=== PATIENT | female | born 1955 | race African-American/Black ===

== ENCOUNTER 2018-05-21 19:57 | Inpatient (IN) | payer OTHER ==
[2018-05-21 20:37] VITALS: BMI 33.1
--- NOTE | 2018-05-22 01:13 | HP ---
COWS - Scale Resting Pulse: 1= NM 81-100 Sweatin= Chills/Flushing Restless Observation: 5= Unable to Sit Still Pupil Size: 0= Normal to Room Light Bone or Joint Aches: 4=Acute Joint/Muscle Pain Runny Nose/ Eye Tearin= Runny Nose/Eyes GI Upset > 30mins: 2= Nausea/Diarrhea Tremor Observation: 1= Tremor [place], Not Seen Yawning Observation: 1= 1-2x During Session Anxiety or Irritability: 2=Irritable/Anxious Goose Flesh Skin: 0=Smooth Skin COWS Score: 19 CIWA Score - CIWA Score Nausea/Vomitin Muscle Tremors: 4-Moderate,w/Arms Extend Anxiety: 4-Mod. Anxious/Guarded Agitation: 4-Moderately Restless Paroxysmal Sweats: 3 Orientation: 0-Oriented Tacttile Disturbances: 3-Moderate Itch/Numb/Burn Auditory Disturbances: 0-None Visual Disturbances: 2-Mild Sensitivity Headache: 0-None Present CIWA-Ar Total Score: 23 Admission [facility] - HPI Chief Complaint: C/O WITHDRAWAL SX'S. SEEKING DETOX FOR ALCOHOL AND OPIOIDS Allergies/Adverse Reactions: Allergies Allergy/AdvReac Type Severity Reaction Status Date / Time No Known Allergies Allergy Verified 05/22/18 01:27 History of Present Illness: 63 Y.O. FEMAL WITH ALCOHOLISM AND OPIOID DEPENDENCE HERE FOR DETOX. CLIENT IS KNOWN TO THIS PROGRAM. LAST HERE 2010. DENIES ANY DETOX TXMENT SINCE THEN. SELF REFERRED. REPORTS LONGEST CLEAN TIME 16 YEARS. RELAPSING 14 YEARS AGO. C/O WITHDRAWAL SX'S DENIES SEIZURE D/O, C.P., SOB, AVH, BLACK OUTS. REPORTS PAST HX /O SUICIDAL ATTEMPT. PRESENLTY DENIES SUCH THOUGHTS. PMHX: HTN, GERD, PSYCH: DEPRESSION Exam Limitations: No Limitations - Ebola screening Have you traveled outside of the country in the last 21 days: No Have you had contact with anyone from an Ebola affected area: No Have you been sick,other than usual withdrawal symptoms: No Do you have a fever: No - Review of Systems Constitutional: Chills, Loss of Appetite, Malaise, Night Sweats, Changes in sleep EENT: reports: Dental Problems (partial upper and lower dentures) Respiratory: reports: Shortness of Breath Cardiac: reports: No Symptoms Reported GI: reports: Poor Appetite, Poor Fluid Intake : reports: No Symptoms Reported Musculoskeletal: reports: Back Pain (chronic), Joint Pain Integumentary: reports: Rash (eczema) Neuro: reports: No Symptoms reported Endocrine: reports: No Symptoms Reported Hematology: reports: No Symptoms Reported Psychiatric: reports: Depressed Other Systems: Reviewed and Negative Patient History - Patient Medical History Hx Anemia: No Hx Asthma: No Hx Chronic Obstructive Pulmonary Disease (COPD): No Hx Cancer: No Hx Cardiac Disorders: No Hx Congestive Heart Failure: No Hx Hypertension: Yes Hx Hypercholesterolemia: No Hx Pacemaker: No HX Cerebrovascular Accident: No Hx Seizures: No Hx Dementia: No Hx Diabetes: No Hx Gastrointestinal Disorders: Yes (gerd) Hx Liver Disease: No Hx Genitourinary Disorders: No Hx Sexually Transmitted Disorders: No Hx Renal Disease (ESRD): No Hx Thyroid Disease: No Hx Human Immunodeficiency Virus (HIV): No Hx Hepatitis C: No Hx Depression: Yes Hx Suicide Attempt: Yes (last attempt 20 years ago/ jumping off A ROOF) Hx Bipolar Disorder: No Hx Schizophrenia: No Other Medical History: denies - Patient Surgical History Past Surgical History: Yes Hx Orthopedic Surgery: Yes (LEFT FOOT BUNION) Anesthesia Reaction: No - PPD History Previous Implant?: Yes Documented Results: Negative w/o proof Implanted On Prior [facility] Admission?: No PPD to be Administered?: Yes - Reproductive History Patient is a Female of Child Bearing Age (11 -55 yrs old): No Patient : No (NEG [facility] [place]) - Smoking Cessation Smoking history: Current every day smoker Have you smoked in the past 12 months: Yes Aproximately how many cigarettes per day: 10 Cigars Per Day: 0 Hx Chewing Tobacco Use: No Initiated information on smoking cessation: Yes 'Breaking Loose' booklet given: 05/22/18 - Substance & Tx. History Hx Alcohol Use: Yes Hx Substance Use: Yes Substance Use Type: Alcohol, Heroin, Opiates (PERCOCETS) Hx Substance Use Treatment: Yes ([facility]) - Substances Abused HEROIN Route: Inhalation Frequency: 1-2 times per week Amount used: 3 BAGS Age of first use: 17 Date of Last Use: 05/20/18 BEER Route: Oral Frequency: Daily Amount used: 6-16OZ Age of first use: 17 Date of Last Use: 05/21/18 PERCOCETS Route: Oral Frequency: 3-6 times per week Amount used: 30MG Age of first use: 20 Date of Last Use: 05/20/18 Family Disease History - Family Disease History Family History: Unable to Obtain ("I DONT KNOW ANYTHING ABOUT THEM") Family Disease History: Other: Mother (ALCOHOLISM) Admission Physical Exam S - Vital Signs Vital Signs: Vital Signs - 24 hr 05/21/18 20:16 Temperature 98.3 F Pulse Rate 96 H Respiratory 18 Rate Blood Pressure 139/103 - Physical General Appearance: Yes: Appropriately Dressed, Mild Distress, Tremorous, Irritable, Anxious HEENTM: Yes: EOMI, Normal ENT Inspection, Normocephalic, Normal Voice, LINDSAY, Pharynx Normal, Other (DENTURES UPPER AND LOWER) Respiratory: Yes: Chest Non-Tender, Lungs Clear, Normal Breath Sounds, No Respiratory Distress, No Accessory Muscle Use Neck: Yes: No masses,lesions,Nodules, Supple, Trachea in good position Breast: Yes: Breast Exam Deferred Cardiology: Yes: Regular Rhythm, Regular Rate, S1, S2 Abdominal: Yes: Normal Bowel Sounds, Non Tender, Soft, Protuberent Genitourinary: Yes: Other (NO C/O) Back: Yes: Normal Inspection Musculoskeletal: Yes: full range of Motion, Gait Steady Extremities: Yes: Normal Capillary Refill, Normal Range of Motion, Non-Tender, Tremors Neurological: Yes: molding engineer II-XII NML intact, Fully Oriented, Alert, Motor Strength 5/5, Depressed Affect Integumentary: Yes: Dry, Warm Lymphatic: Yes: Within Normal Limits - Diagnostic (1) Alcohol dependence with uncomplicated withdrawal Current Visit: Yes Status: Acute (2) Opioid dependence with withdrawal Current Visit: Yes Status: Acute (3) Nicotine dependence Current Visit: Yes Status: Chronic Qualifiers: Nicotine product type: cigarettes Substance use status: uncomplicated Qualified Code(s): F17.210 - Nicotine dependence, cigarettes, uncomplicated (4) HTN (hypertension) Current Visit: Yes Status: Acute Qualifiers: Hypertension type: essential hypertension Qualified Code(s): I10 - Essential (primary) hypertension (5) GERD (gastroesophageal reflux disease) Current Visit: Yes Status: Chronic Qualifiers: Esophagitis presence: esophagitis presence not specified Qualified Code(s) : K21.9 - Gastro-esophageal reflux disease without esophagitis (6) At risk for dehydration due to poor fluid intake Current Visit: Yes Status: Acute (7) Depressed affect Current Visit: Yes Status: Suspected (8) Substance induced mood disorder Current Visit: Yes Status: Suspected (9) Substance-induced sleep disorder Current Visit: Yes Status: Suspected Cleared for Admission [facility] - Detox or Rehab [facility] Level of Care: Medically Managed Detox Regimen/Protocol: Methadone/Librium Claeared for Rehab Admission: No S Breath Alcohol Content Breath Alcohol Content: 0.035 Urine Pregancy Test - Result Urine Test Results: Negative- NO Line Present Urine Drug Screen - Results Drug Screen Negative: No Urine Drug Screen Results: OPI-Opiates, TCA-Tricyclic Antidepress, OXY-Oxycodone
[2018-05-22] MEDS ORDERED: P-EPHED 60MG/TRIPROLIDI 2.5MG TABLET PO PRN (01:16)
[2018-05-22] MEDS ORDERED: ACETAMINOPHEN 325 MG TABLET (FP) PO PRN (01:16)
[2018-05-22] MEDS ORDERED: METHADONE HCL 10 MG TABLET (FOR DETOX USE ONLY) PO ONE ×3 (01:16→22:00)
[2018-05-22] MEDS ORDERED: IBUPROFEN 400 MG TABLET (FP) PO PRN (01:16)
[2018-05-22] MEDS ORDERED: NICOTINE POLACRILEX 2 MG GUM BUC PRN (01:16)
[2018-05-22] MEDS ORDERED: MAG HYDROX/AL HYDROX/SIMETH 30 ML UNIT-DOSE CUP PO PRN (01:16)
[2018-05-22] MEDS ORDERED: chlordiazePOXIDE HCL 25 MG CAPSULE PO PRN (01:16)
[2018-05-22] MEDS ORDERED: LOPERAMIDE HCL 2 MG CAPSULE PO PRN (01:16)
[2018-05-22] MEDS ORDERED: MAGNESIUM CITRATE 300 ML BOTTLE PO PRN (01:16)
[2018-05-22] MEDS ORDERED: guaiFENesin/D-METHORPHAN HB 10 ML UNIT-DOSE CUPS PO PRN (01:16)
[2018-05-22] MEDS: chlordiazePOXIDE HCL 25 MG CAPSULE PO SCH ×4 (04:10→22:42)
--- NOTE | 2018-05-22 08:41 | CONSULT ---
[facility] Psychiatric Consult - Data Date of interview: 05/22/18 Admission source: [facility] Identifying data: This is 63 years old female, single mother of two, living alone, on SSI with psychiatric hospitalization history, history of suicidal attempt, with long history of Opioids, Alcohol and Nicotine dependence, reporting withdrawal symptoms and seeking detox. Substance Abuse History: Smoking history: Current every day smoker. Have you smoked in the past 12 months: Yes. Aproximately how many cigarettes per day: 10. Cigars Per Day: 0. Hx Chewing Tobacco Use: No. Initiated information on smoking cessation: Yes. 'Breaking Loose' booklet given: 05/22/18. - Substance & Tx. History. Hx Alcohol Use: Yes. Hx Substance Use: Yes. Substance Use Type : Alcohol, Heroin, Opiates (PERCOCETS). Hx Substance Use Treatment: Yes ([facility]) . - Substances Abused. HEROIN. Route: Inhalation. Frequency: 1-2 times per week. Amount used: 3 BAGS. Age of first use: 17. Date of Last Use: . BEER. Route: Oral. Frequency: Daily. Amount used: 6-16OZ. Age of first use: 17. Date of Last Use: 05/21/18. PERCOCETS. Route: Oral. Frequency: 3-6 times per week. Amount used: 30MG. Age of first use: 20. Date of Last Use: 05/20/18 Medical History: HTN, GERD Psychiatric History: Patient reports past psychiatric history of depression, suicidal attempt on about 20 years ago, patient tryed to jump of the roof, reports no suicidal history since then, reports most recent psychiatric admission on about 5 years ago for safety, reports currently taking: Paxil 40mg po qhs. Vicvtaril 50mg po qhs. Gabapentin 600mg po qhs Physical/Sexual Abuse/Trauma History: Denies Additional Comment: Paxil 40mg po qhs. Vicvtaril 50mg po qhs. Gabapentin 600mg po qhs Mental Status Exam - Mental Status Exam Alert and Oriented to: Person Cognitive Function: Fair Patient Appearance: Unkempt Mood: Anxious Affect: Mood Congruent, Constricted Patient Behavior: Cooperative Speech Pattern: Appropriate Voice Loudness: Mildly Soft/Quiet Thought Process: Goal Oriented Thought Disorder: Being Controlled Hallucinations: Denies Suicidal Ideation: Denies Homicidal Ideation: Denies Insight/Judgement: Fair Sleep: Difficulty falling asleep Appetite: Weight loss Muscle strength/Tone: Normal Gait/Station: Normal Additional Comments: Paxil 40mg po qhs. Vicvtaril 50mg po qhs. Gabapentin 600mg po qhs Psychiatric Findings - Problem List ([place] 1, 2,3) (1) Alcohol dependence with uncomplicated withdrawal Current Visit: Yes Status: Acute (2) Substance induced mood disorder Current Visit: Yes Status: Suspected (3) Substance-induced sleep disorder Current Visit: Yes Status: Suspected (4) Opioid dependence Current Visit: Yes Status: Acute (5) Nicotine dependence Current Visit: Yes Status: Acute (6) Drug-induced mood disorder Current Visit: Yes Status: Acute (7) MDD (major depressive disorder) Current Visit: Yes Status: Chronic - Initial Treatment Plan Initial Treatment Plan: Paxil 40mg po qhs. Vicvtaril 50mg po qhs. Gabapentin 600mg po qhs
[2018-05-22] MEDS ORDERED: COLLOIDAL OATMEAL 1 BAR EACH TP PRN (08:44)
--- NOTE | 2018-05-22 08:49 | PN ---
[facility] CIWA - CIWA Score Nausea/Vomitin-Mild Nausea/No Vomiting Muscle Tremors: 4-Moderate,w/Arms Extend Anxiety: 4-Mod. Anxious/Guarded Agitation: 4-Moderately Restless Paroxysmal Sweats: 1-Minimal Palms Moist Orientation: 1-Uncertain about Date Tacttile Disturbances: 2-Mild Itch/Numbness/Burn Auditory Disturbances: 0-None Visual Disturbances: 0-None Headache: 1-Very Mild CIWA-Ar Total Score: 18 [facility] COWS - Scale Resting Pulse: 1= [place] 81-100 Sweatin= Chills/Flushing Restless Observation: 3= Extraneous Movement Pupil Size: 0= Normal to Room Light Bone or Joint Aches: 2= Severe Diffuse Aches Runny Nose/ Eye Tearin= Nasal Congestion GI Upset > 30mins: 2= Nausea/Diarrhea Tremor Observation of Outstretched Hands: 2= Slight Tremor Visible Yawning Observation: 1= 1-2x During Session Anxiety or Irritability: 2=Irritable/Anxious Goose Flesh Skin: 0=Smooth Skin COWS Score: 15 [facility] Progress Note (SOAP) Subjective: sweat tremor muscle aches itching skin trouble sleep at night anxiety Objective: 05/22/18 08:51 Vital Signs Temperature 98.1 F 05/22/18 06:30 Pulse Rate 85 05/22/18 06:30 Respiratory Rate 18 05/22/18 06:30 Blood Pressure 155/98 05/22/18 06:30 O2 Sat by Pulse Oximetry (%) lab pending begin clonidine 0.1 mg prn lasix 20 mg po daily Assessment: 05/22/18 08:52 alcohol and opiate withdrawal sx hypertension CHF with swelling ankles Eczema 05/22/18 08:54 Plan: continue detox aveen soap eucerine cream clonidine prn and lasix elevation of both legs
[2018-05-22] MEDS: cloNIDine HCL 0.1 MG TABLET PO PRN (10:18)
[2018-05-22] MEDS: PRENATAL VITAMINS W/ FOLIC ACID TABLET (FP) PO SCH (10:19)
[2018-05-22] MEDS: FUROSEMIDE 20 MG TABLET (FP) PO SCH (10:19)
[2018-05-22] MEDS: NICOTINE 14 MG/24 HOURS TOPICAL PATCH TD SCH (10:21)
[2018-05-22 10:49] LABS: CHLORIDE 101 mmol/L (98-107); POTASSIUM 3.8 mmol/L (3.5-5.1); SODIUM 137 mmol/L (136-145)
[2018-05-22 10:55] LABS: HEMATOCRIT 39.5 % (32.4-45.2); HEMOGLOBIN 13.5 GM/dL (10.7-15.3); MEAN PLT VOLUME 11.5 fl (7.5-11.1); PLATELET COUNT 145 K/MM3 (134-434); RBC 4.21 M/mm3 (3.60-5.2); RDW 13.9 % (11.6-15.6); WHITE BLOOD COUNT 8.6 K/mm3 (4.0-10.0)
[2018-05-22 11:05] LABS: URINE APPEARANCE CLOUDY; URINE BILIRUBIN NEGATIVE (<2.0 mg/dL); URINE COLOR DKYELLOW; URINE GLUCOSE (UA) NEGATIVE (NEGATIVE); URINE KETONE NEGATIVE (NEGATIVE); URINE LEUK ESTERASE TRACE (NEGATIVE); URINE NITRITE NEGATIVE (NEGATIVE); URINE PROTEIN NEGATIVE (NEGATIVE); URINE UROBILINOGEN 4.0 E.U/dl mg/dL (0.2-1.0)
[2018-05-22 11:12] LABS: ALBUMIN 4.3 g/dl (3.4-5.0); ALK PHOS 73 U/L (45-117); ANION GAP 8 MMOL/L (8-16); BILIRUBIN,TOTAL 0.6 mg/dL (0.2-1.0); BLOOD UREA NITROGEN 23 mg/dL (7-18); CALCIUM 8.8 mg/dL (8.5-10.1); CO2 28 mmol/L (21-32); CREATININE 0.9 mg/dL (0.55-1.02); GLUCOSE,RANDOM 118 mg/dL (74-106); SGOT/AST 20 U/L (15-37); SGPT/ALT 18 U/L (12-78); TOT PROT 7.7 g/dl (6.4-8.2)
[2018-05-22 11:57] LABS: CALCIUM OXALATE CRYSTALS RARE /hpf (NONE SEEN); EPI CELLS MODERATE /HPF (FEW); URINE BACTERIA FEW /hpf (NONE SEEN); URINE HYALINE CAST 2 /lpf; URINE MUCUS RARE; YEAST RARE
--- NOTE | 2018-05-22 12:30 | EKG ---
Test Reason : Blood Pressure : / mmHG Vent. Rate : 076 BPM Atrial Rate : 076 BPM P-R Int : 180 ms QRS Dur : 088 ms QT Int : 394 ms P-R-T Axes : 072 057 -09 degrees QTc Int : 443 ms NORMAL SINUS RHYTHM VOLTAGE CRITERIA FOR LEFT VENTRICULAR HYPERTROPHY T WAVE ABNORMALITY, CONSIDER LATERAL ISCHEMIA ABNORMAL ECG NO PREVIOUS ECGS AVAILABLE Confirmed by NIKKO DUBON MD ([id number]) on 05/22/2018 12:30:30 PM Referred By: Confirmed By:NIKKO DUBON MD
--- NOTE | 2018-05-22 12:32 | EKG ---
Test Reason : Blood Pressure : / mmHG Vent. Rate : 078 BPM Atrial Rate : 078 BPM P-R Int : 192 ms QRS Dur : 092 ms QT Int : 370 ms P-R-T Axes : 072 059 -17 degrees QTc Int : 421 ms NORMAL SINUS RHYTHM MODERATE VOLTAGE CRITERIA FOR LVH, MAY BE NORMAL VARIANT T WAVE ABNORMALITY, CONSIDER INFEROLATERAL ISCHEMIA ABNORMAL ECG WHEN COMPARED WITH ECG OF 22-MAY-2018 02:52, NO SIGNIFICANT CHANGE WAS FOUND Confirmed by NIKKO DUBON MD ([id number]) on 05/22/2018 12:31:55 PM Referred By: Confirmed By:NIKKO DUBON MD
[2018-05-22] MEDS ORDERED: hydrOXYzine PAMOATE 50 MG CAPSULE (FP) PO ONE (14:36)
[2018-05-22] MEDS: CALAMINE 8% TOPICAL LOTION 177 ML BOTTLE TP SCH ×2 (21:18→23:16)
[2018-05-22] MEDS ORDERED: MELATONIN 5 MG TABLETS PO PRN (22:00)
[2018-05-22] MEDS: PARoxetine HCL 20 MG TABLET (FP) PO SCH (22:41)
[2018-05-22] MEDS: THIAMINE HCL 100 MG TABLET (FP) PO SCH (22:41)
[2018-05-22] MEDS: hydrOXYzine PAMOATE 50 MG CAPSULE (FP) PO SCH (22:42)
[2018-05-22] MEDS: GABAPENTIN 300 MG CAPSULE (FP) PO SCH (22:42)
[2018-05-22] MEDS: MINERAL OIL/PETROLAT/WATER TOPICAL CREAM 113 GM JAR TP SCH (23:16)
[2018-05-23] MEDS: chlordiazePOXIDE HCL 25 MG CAPSULE PO SCH ×3 (06:32→22:38)
[2018-05-23] MEDS: cloNIDine HCL 0.1 MG TABLET PO PRN ×2 (06:33→22:39)
[2018-05-23] MEDS ORDERED: cloNIDine HCL 0.1 MG TABLET PO ONE (08:10)
[2018-05-23] MEDS ORDERED: METHADONE HCL 5 MG TABLET (FOR DETOX USE ONLY) PO SCH (10:00)
[2018-05-23] MEDS: FUROSEMIDE 20 MG TABLET (FP) PO SCH (10:58)
[2018-05-23] MEDS: PRENATAL VITAMINS W/ FOLIC ACID TABLET (FP) PO SCH (10:58)
[2018-05-23] MEDS: NICOTINE 14 MG/24 HOURS TOPICAL PATCH TD SCH (11:02)
[2018-05-23] MEDS: CALAMINE 8% TOPICAL LOTION 177 ML BOTTLE TP SCH ×3 (11:02→22:39)
[2018-05-23] MEDS: MAGNESIUM HYDROX 2400MG/30ML ORAL SUSPENSION 30 ML CUP PO PRN ×2 (15:02→22:39)
[2018-05-23] MEDS: hydrOXYzine PAMOATE 50 MG CAPSULE (FP) PO SCH (22:38)
[2018-05-23] MEDS: THIAMINE HCL 100 MG TABLET (FP) PO SCH (22:38)
[2018-05-23] MEDS: PARoxetine HCL 20 MG TABLET (FP) PO SCH (22:39)
[2018-05-23] MEDS: GABAPENTIN 300 MG CAPSULE (FP) PO SCH (22:40)
[2018-05-23] MEDS: MINERAL OIL/PETROLAT/WATER TOPICAL CREAM 113 GM JAR TP SCH (22:40)
--- NOTE | 2018-05-23 23:18 | PN ---
[facility] CIWA - CIWA Score Nausea/Vomitin-Mild Nausea/No Vomiting Muscle Tremors: 4-Moderate,w/Arms Extend Anxiety: 1-Mildly Anxious Agitation: 1-Slight > Activity Paroxysmal Sweats: No Perspiration Orientation: 0-Oriented Tacttile Disturbances: 0-None Auditory Disturbances: 0-None Visual Disturbances: 0-None Headache: 0-None Present CIWA-Ar Total Score: 7 S COWS - Scale Resting Pulse: 1= [place] 81-100 Sweatin= No chills or Flushing Restless Observation: 0= Sits Still Pupil Size: 0= Normal to Room Light Bone or Joint Aches: 0= None Runny Nose/ Eye Tearin= None GI Upset > 30mins: 2= Nausea/Diarrhea (No diarrhea) Tremor Observation of Outstretched Hands: 2= Slight Tremor Visible Yawning Observation: 0= None Anxiety or Irritability: 1=Feels Anxious/Irritable Goose Flesh Skin: 0=Smooth Skin COWS Score: 6 S Progress Note (SOAP) Subjective: Feels anxious and having some nausea. Shaky. Objective: A & O x 3. (+) Tremors. Vital Signs - 24 hr 05/23/18 05/23/18 05/23/18 00:05 00:30 03:30 Temperature 97.7 F Pulse Rate 70 Respiratory 18 18 18 Rate Blood Pressure 173/95 05/23/18 05/23/18 05/23/18 08:43 08:59 14:05 Temperature 97.5 F L 98.4 F 98.1 F Pulse Rate 71 84 85 Respiratory 18 16 16 Rate Blood Pressure 162/119 145/98 119/90 05/23/18 05/23/18 17:44 22:44 Temperature 96.6 F L 98.1 F Pulse Rate 77 93 H Respiratory 16 18 Rate Blood Pressure 155/88 145/110 Laboratory Last Values WBC 8.6 K/mm3 (4.0-10.0) 05/22/18 07:30 RBC 4.21 M/mm3 (3.60-5.2) 05/22/18 07:30 Hgb 13.5 GM/dL (10.7-15.3) 05/22/18 07:30 Hct 39.5 % (32.4-45.2) 05/22/18 07:30 MCV 94.0 fl (80-96) 05/22/18 07:30 MCH 32.0 pg (25.7-33.7) 05/22/18 07:30 MCHC 34.0 g/dl (32.0-36.0) 05/22/18 07:30 RDW 13.9 % (11.6-15.6) 05/22/18 07:30 Plt Count 145 K/MM3 (134-434) 05/22/18 07:30 MPV 11.5 fl (7.5-11.1) H 05/22/18 07:30 Sodium 137 mmol/L (136-145) 05/22/18 07:30 Potassium 3.8 mmol/L (3.5-5.1) 05/22/18 07:30 Chloride 101 mmol/L (98-107) 05/22/18 07:30 Carbon Dioxide 28 mmol/L (21-32) 05/22/18 07:30 Anion Gap 8 MMOL/L (8-16) 05/22/18 07:30 BUN 23 mg/dL (7-18) H 05/22/18 07:30 Creatinine 0.9 mg/dL (0.55-1.02) 05/22/18 07:30 Creat Clearance w eGFR > 60 (>60) 05/22/18 07:30 Random Glucose 118 mg/dL (74-106) H 05/22/18 07:30 Calcium 8.8 mg/dL (8.5-10.1) 05/22/18 07:30 Total Bilirubin 0.6 mg/dL (0.2-1.0) 05/22/18 07:30 AST 20 U/L (15-37) 05/22/18 07:30 ALT 18 U/L (12-78) 05/22/18 07:30 Alkaline Phosphatase 73 U/L (45-117) 05/22/18 07:30 Total Protein 7.7 g/dl (6.4-8.2) 05/22/18 07:30 Albumin 4.3 g/dl (3.4-5.0) 05/22/18 07:30 Urine Color Dkyellow 05/22/18 09:05 Urine Appearance Cloudy 05/22/18 09:05 Urine pH 5.0 (5.0-8.0) 05/22/18 09:05 Ur Specific [place] 1.028 (1.001-1.035) 05/22/18 09:05 Urine Protein Negative (NEGATIVE) 05/22/18 09:05 Urine Glucose (UA) Negative (NEGATIVE) 05/22/18 09:05 Urine Ketones Negative (NEGATIVE) 05/22/18 09:05 Urine Blood Negative (NEGATIVE) 05/22/18 09:05 Urine Nitrite Negative (NEGATIVE) 05/22/18 09:05 Urine Bilirubin Negative (<2.0 mg/dL) 05/22/18 09:05 Urine Urobilinogen 4.0 e.u/dl mg/dL (0.2-1.0) H 05/22/18 09:05 Ur Leukocyte Esterase Trace (NEGATIVE) 05/22/18 09:05 Urine WBC (Auto) 5 /hpf (3-5) 05/22/18 09:05 Urine RBC (Auto) 2 /hpf (0-3) 05/22/18 09:05 Ur Epithelial Cells Moderate /HPF (FEW) 05/22/18 09:05 Calcium Oxalate Crystal Rare /hpf (NONE SEEN) 05/22/18 09:05 Urine Bacteria Few /hpf (NONE SEEN) 05/22/18 09:05 Hyaline Casts 2 /lpf 05/22/18 09:05 Urine Mucus Rare 05/22/18 09:05 Urine Yeast Rare 05/22/18 09:05 RPR Titer Nonreactive (NONREACTIVE) 05/22/18 09:00 Labs reviewed Assessment: Alcohol and opiate withdrawal Plan: Continue detox
[2018-05-24] MEDS: CALAMINE 8% TOPICAL LOTION 177 ML BOTTLE TP SCH ×5 (00:15→22:15)
[2018-05-24] MEDS: chlordiazePOXIDE HCL 25 MG CAPSULE PO SCH (00:16)
[2018-05-24] MEDS: chlordiazePOXIDE 5 MG CAPSULE PO SCH ×4 (06:58→22:13)
[2018-05-24] MEDS: FUROSEMIDE 20 MG TABLET (FP) PO SCH (10:39)
[2018-05-24] MEDS: METHADONE HCL 5 MG TABLET (FOR DETOX USE ONLY) PO SCH (10:39)
[2018-05-24] MEDS: PRENATAL VITAMINS W/ FOLIC ACID TABLET (FP) PO SCH (10:39)
[2018-05-24] MEDS: NICOTINE 14 MG/24 HOURS TOPICAL PATCH TD SCH (10:41)
--- NOTE | 2018-05-24 18:38 | PN ---
S Progress Note (SOAP) Subjective: Patient states I am fine. Stop asking me. Objective: Alert and oriented x 3 but movements are slow. Gait steady. Agitated. Vital Signs 05/24/18 05/24/18 13:44 17:31 Temperature 98.1 F 97.3 F L Pulse Rate 95 H 81 Respiratory 20 18 Rate Blood Pressure 147/99 145/86 Laboratory Last Values WBC 8.6 K/mm3 (4.0-10.0) 05/22/18 07:30 RBC 4.21 M/mm3 (3.60-5.2) 05/22/18 07:30 Hgb 13.5 GM/dL (10.7-15.3) 05/22/18 07:30 Hct 39.5 % (32.4-45.2) 05/22/18 07:30 MCV 94.0 fl (80-96) 05/22/18 07:30 MCH 32.0 pg (25.7-33.7) 05/22/18 07:30 MCHC 34.0 g/dl (32.0-36.0) 05/22/18 07:30 RDW 13.9 % (11.6-15.6) 05/22/18 07:30 Plt Count 145 K/MM3 (134-434) 05/22/18 07:30 MPV 11.5 fl (7.5-11.1) H 05/22/18 07:30 Sodium 137 mmol/L (136-145) 05/22/18 07:30 Potassium 3.8 mmol/L (3.5-5.1) 05/22/18 07:30 Chloride 101 mmol/L (98-107) 05/22/18 07:30 Carbon Dioxide 28 mmol/L (21-32) 05/22/18 07:30 Anion Gap 8 MMOL/L (8-16) 05/22/18 07:30 BUN 23 mg/dL (7-18) H 05/22/18 07:30 Creatinine 0.9 mg/dL (0.55-1.02) 05/22/18 07:30 Creat Clearance w eGFR > 60 (>60) 05/22/18 07:30 Random Glucose 118 mg/dL (74-106) H 05/22/18 07:30 Calcium 8.8 mg/dL (8.5-10.1) 05/22/18 07:30 Total Bilirubin 0.6 mg/dL (0.2-1.0) 05/22/18 07:30 AST 20 U/L (15-37) 05/22/18 07:30 ALT 18 U/L (12-78) 05/22/18 07:30 Alkaline Phosphatase 73 U/L (45-117) 05/22/18 07:30 Total Protein 7.7 g/dl (6.4-8.2) 05/22/18 07:30 Albumin 4.3 g/dl (3.4-5.0) 05/22/18 07:30 Urine Color Dkyellow 05/22/18 09:05 Urine Appearance Cloudy 05/22/18 09:05 Urine pH 5.0 (5.0-8.0) 05/22/18 09:05 Ur Specific [place] 1.028 (1.001-1.035) 05/22/18 09:05 Urine Protein Negative (NEGATIVE) 05/22/18 09:05 Urine Glucose (UA) Negative (NEGATIVE) 05/22/18 09:05 Urine Ketones Negative (NEGATIVE) 05/22/18 09:05 Urine Blood Negative (NEGATIVE) 05/22/18 09:05 Urine Nitrite Negative (NEGATIVE) 05/22/18 09:05 Urine Bilirubin Negative (<2.0 mg/dL) 05/22/18 09:05 Urine Urobilinogen 4.0 e.u/dl mg/dL (0.2-1.0) H 05/22/18 09:05 Ur Leukocyte Esterase Trace (NEGATIVE) 05/22/18 09:05 Urine WBC (Auto) 5 /hpf (3-5) 05/22/18 09:05 Urine RBC (Auto) 2 /hpf (0-3) 05/22/18 09:05 Ur Epithelial Cells Moderate /HPF (FEW) 05/22/18 09:05 Calcium Oxalate Crystal Rare /hpf (NONE SEEN) 05/22/18 09:05 Urine Bacteria Few /hpf (NONE SEEN) 05/22/18 09:05 Hyaline Casts 2 /lpf 05/22/18 09:05 Urine Mucus Rare 05/22/18 09:05 Urine Yeast Rare 05/22/18 09:05 RPR Titer Nonreactive (NONREACTIVE) 05/22/18 09:00 Labs reviewed. Assessment: Withdrawal symptoms. r/o elevated serum ammonia level. Plan: Continue detox. Serum ammonia level in am.
[2018-05-24] MEDS: THIAMINE HCL 100 MG TABLET (FP) PO SCH (22:13)
[2018-05-24] MEDS: hydrOXYzine PAMOATE 50 MG CAPSULE (FP) PO SCH (22:14)
[2018-05-24] MEDS: PARoxetine HCL 20 MG TABLET (FP) PO SCH (22:14)
[2018-05-24] MEDS: GABAPENTIN 300 MG CAPSULE (FP) PO SCH (22:14)
[2018-05-24] MEDS: MINERAL OIL/PETROLAT/WATER TOPICAL CREAM 113 GM JAR TP SCH (22:48)
[2018-05-25] MEDS: chlordiazePOXIDE HCL 10 MG CAPSULE PO SCH ×5 (05:41→22:33)
[2018-05-25] MEDS: cloNIDine HCL 0.1 MG TABLET PO PRN ×2 (05:43→11:20)
--- NOTE | 2018-05-25 10:08 | PN ---
[facility] Progress Note Note: Vital Signs Temperature 98.6 F 05/25/18 09:55 Pulse Rate 89 05/25/18 09:55 Respiratory Rate 20 05/25/18 09:55 Blood Pressure 150/105 05/25/18 09:55 O2 Sat by Pulse Oximetry (%) Laboratory Last Values WBC 8.6 K/mm3 (4.0-10.0) 05/22/18 07:30 RBC 4.21 M/mm3 (3.60-5.2) 05/22/18 07:30 Hgb 13.5 GM/dL (10.7-15.3) 05/22/18 07:30 Hct 39.5 % (32.4-45.2) 05/22/18 07:30 MCV 94.0 fl (80-96) 05/22/18 07:30 MCH 32.0 pg (25.7-33.7) 05/22/18 07:30 MCHC 34.0 g/dl (32.0-36.0) 05/22/18 07:30 RDW 13.9 % (11.6-15.6) 05/22/18 07:30 Plt Count 145 K/MM3 (134-434) 05/22/18 07:30 MPV 11.5 fl (7.5-11.1) H 05/22/18 07:30 Sodium 137 mmol/L (136-145) 05/22/18 07:30 Potassium 3.8 mmol/L (3.5-5.1) 05/22/18 07:30 Chloride 101 mmol/L (98-107) 05/22/18 07:30 Carbon Dioxide 28 mmol/L (21-32) 05/22/18 07:30 Anion Gap 8 MMOL/L (8-16) 05/22/18 07:30 BUN 23 mg/dL (7-18) H 05/22/18 07:30 Creatinine 0.9 mg/dL (0.55-1.02) 05/22/18 07:30 Creat Clearance w eGFR > 60 (>60) 05/22/18 07:30 Random Glucose 118 mg/dL (74-106) H 05/22/18 07:30 Calcium 8.8 mg/dL (8.5-10.1) 05/22/18 07:30 Total Bilirubin 0.6 mg/dL (0.2-1.0) 05/22/18 07:30 AST 20 U/L (15-37) 05/22/18 07:30 ALT 18 U/L (12-78) 05/22/18 07:30 Alkaline Phosphatase 73 U/L (45-117) 05/22/18 07:30 Total Protein 7.7 g/dl (6.4-8.2) 05/22/18 07:30 Albumin 4.3 g/dl (3.4-5.0) 05/22/18 07:30 Urine Color Dkyellow 05/22/18 09:05 Urine Appearance Cloudy 05/22/18 09:05 Urine pH 5.0 (5.0-8.0) 05/22/18 09:05 Ur Specific [place] 1.028 (1.001-1.035) 05/22/18 09:05 Urine Protein Negative (NEGATIVE) 05/22/18 09:05 Urine Glucose (UA) Negative (NEGATIVE) 05/22/18 09:05 Urine Ketones Negative (NEGATIVE) 05/22/18 09:05 Urine Blood Negative (NEGATIVE) 05/22/18 09:05 Urine Nitrite Negative (NEGATIVE) 05/22/18 09:05 Urine Bilirubin Negative (<2.0 mg/dL) 05/22/18 09:05 Urine Urobilinogen 4.0 e.u/dl mg/dL (0.2-1.0) H 05/22/18 09:05 Ur Leukocyte Esterase Trace (NEGATIVE) 05/22/18 09:05 Urine WBC (Auto) 5 /hpf (3-5) 05/22/18 09:05 Urine RBC (Auto) 2 /hpf (0-3) 05/22/18 09:05 Ur Epithelial Cells Moderate /HPF (FEW) 05/22/18 09:05 Calcium Oxalate Crystal Rare /hpf (NONE SEEN) 05/22/18 09:05 Urine Bacteria Few /hpf (NONE SEEN) 05/22/18 09:05 Hyaline Casts 2 /lpf 05/22/18 09:05 Urine Mucus Rare 05/22/18 09:05 Urine Yeast Rare 05/22/18 09:05 RPR Titer Nonreactive (NONREACTIVE) 05/22/18 09:00 Patient AOx3 no distress mild lethargy present full ROM ambulating in the unit withdrawal sx elevated ammonia levels Plan: increase PO fluids hold next dose of librium lactulose TID repeat ammonia levels continue detox continue to montior
[2018-05-25] MEDS: NICOTINE 14 MG/24 HOURS TOPICAL PATCH TD SCH (10:33)
[2018-05-25] MEDS: FUROSEMIDE 20 MG TABLET (FP) PO SCH (10:35)
[2018-05-25] MEDS: PRENATAL VITAMINS W/ FOLIC ACID TABLET (FP) PO SCH (10:35)
[2018-05-25] MEDS: CALAMINE 8% TOPICAL LOTION 177 ML BOTTLE TP SCH ×4 (10:36→23:44)
[2018-05-25] MEDS: METHADONE HCL 5 MG TABLET (FOR DETOX USE ONLY) PO SCH (15:30)
[2018-05-25] MEDS: LACTULOSE 20 GM/30 ML UDC (FOR ORAL USE ONLY) PO SCH (22:32)
[2018-05-25] MEDS: GABAPENTIN 300 MG CAPSULE (FP) PO SCH (22:33)
[2018-05-25] MEDS: THIAMINE HCL 100 MG TABLET (FP) PO SCH (22:34)
[2018-05-25] MEDS: PARoxetine HCL 20 MG TABLET (FP) PO SCH (22:34)
[2018-05-25] MEDS: hydrOXYzine PAMOATE 50 MG CAPSULE (FP) PO SCH (22:34)
[2018-05-25] MEDS: MINERAL OIL/PETROLAT/WATER TOPICAL CREAM 113 GM JAR TP SCH (23:44)
[2018-05-26] MEDS: LACTULOSE 20 GM/30 ML UDC (FOR ORAL USE ONLY) PO SCH ×3 (05:43→22:27)
[2018-05-26] MEDS: cloNIDine HCL 0.1 MG TABLET PO PRN (05:43)
[2018-05-26] MEDS: MENTHOL/PHENOL 1 EACH UD MM PRN (05:46)
[2018-05-26] MEDS ORDERED: METHADONE HCL 10 MG TABLET (FOR DETOX USE ONLY) PO SCH (10:00)
[2018-05-26] MEDS: FUROSEMIDE 20 MG TABLET (FP) PO SCH (10:33)
[2018-05-26] MEDS: PRENATAL VITAMINS W/ FOLIC ACID TABLET (FP) PO SCH (10:33)
[2018-05-26] MEDS: NICOTINE 14 MG/24 HOURS TOPICAL PATCH TD SCH (10:35)
[2018-05-26] MEDS: CALAMINE 8% TOPICAL LOTION 177 ML BOTTLE TP SCH ×2 (10:36→13:59)
--- NOTE | 2018-05-26 13:55 | PN ---
S Progress Note (SOAP) Subjective: patient has mild alcohol withdrawal sx today ammonia level up to 71, patient had two doses of lactulose since ammonia level was 52 patient is going to be discharged to [facility] continue lactulose and monitor ammonia level while at [facility] Objective: 05/26/18 14:05 Vital Signs Temperature 98.2 F 05/26/18 09:40 Pulse Rate 93 H 05/26/18 09:40 Respiratory Rate 18 05/26/18 09:40 Blood Pressure 130/83 05/26/18 09:40 O2 Sat by Pulse Oximetry (%) Laboratory Last Values WBC 8.6 K/mm3 (4.0-10.0) 05/22/18 07:30 RBC 4.21 M/mm3 (3.60-5.2) 05/22/18 07:30 Hgb 13.5 GM/dL (10.7-15.3) 05/22/18 07:30 Hct 39.5 % (32.4-45.2) 05/22/18 07:30 MCV 94.0 fl (80-96) 05/22/18 07:30 MCH 32.0 pg (25.7-33.7) 05/22/18 07:30 MCHC 34.0 g/dl (32.0-36.0) 05/22/18 07:30 RDW 13.9 % (11.6-15.6) 05/22/18 07:30 Plt Count 145 K/MM3 (134-434) 05/22/18 07:30 MPV 11.5 fl (7.5-11.1) H 05/22/18 07:30 Sodium 137 mmol/L (136-145) 05/22/18 07:30 Potassium 3.8 mmol/L (3.5-5.1) 05/22/18 07:30 Chloride 101 mmol/L (98-107) 05/22/18 07:30 Carbon Dioxide 28 mmol/L (21-32) 05/22/18 07:30 Anion Gap 8 MMOL/L (8-16) 05/22/18 07:30 BUN 23 mg/dL (7-18) H 05/22/18 07:30 Creatinine 0.9 mg/dL (0.55-1.02) 05/22/18 07:30 Creat Clearance w eGFR > 60 (>60) 05/22/18 07:30 Random Glucose 118 mg/dL (74-106) H 05/22/18 07:30 Calcium 8.8 mg/dL (8.5-10.1) 05/22/18 07:30 Total Bilirubin 0.6 mg/dL (0.2-1.0) 05/22/18 07:30 AST 20 U/L (15-37) 05/22/18 07:30 ALT 18 U/L (12-78) 05/22/18 07:30 Alkaline Phosphatase 73 U/L (45-117) 05/22/18 07:30 Ammonia 71.31 umol/L (11-32) H 05/26/18 08:00 Total Protein 7.7 g/dl (6.4-8.2) 05/22/18 07:30 Albumin 4.3 g/dl (3.4-5.0) 05/22/18 07:30 Urine Color Dkyellow 05/22/18 09:05 Urine Appearance Cloudy 05/22/18 09:05 Urine pH 5.0 (5.0-8.0) 05/22/18 09:05 Ur Specific [place] 1.028 (1.001-1.035) 05/22/18 09:05 Urine Protein Negative (NEGATIVE) 05/22/18 09:05 Urine Glucose (UA) Negative (NEGATIVE) 05/22/18 09:05 Urine Ketones Negative (NEGATIVE) 05/22/18 09:05 Urine Blood Negative (NEGATIVE) 05/22/18 09:05 Urine Nitrite Negative (NEGATIVE) 05/22/18 09:05 Urine Bilirubin Negative (<2.0 mg/dL) 05/22/18 09:05 Urine Urobilinogen 4.0 e.u/dl mg/dL (0.2-1.0) H 05/22/18 09:05 Ur Leukocyte Esterase Trace (NEGATIVE) 05/22/18 09:05 Urine WBC (Auto) 5 /hpf (3-5) 05/22/18 09:05 Urine RBC (Auto) 2 /hpf (0-3) 05/22/18 09:05 Ur Epithelial Cells Moderate /HPF (FEW) 05/22/18 09:05 Calcium Oxalate Crystal Rare /hpf (NONE SEEN) 05/22/18 09:05 Urine Bacteria Few /hpf (NONE SEEN) 05/22/18 09:05 Hyaline Casts 2 /lpf 05/22/18 09:05 Urine Mucus Rare 05/22/18 09:05 Urine Yeast Rare 05/22/18 09:05 RPR Titer Nonreactive (NONREACTIVE) 05/22/18 09:00 lab noted Assessment: 05/26/18 14:06 mild withdrawal sx Plan: medically supervised detox ammonia serum level elevation treated with lactulose
[2018-05-26] MEDS: GABAPENTIN 300 MG CAPSULE (FP) PO SCH (22:27)
[2018-05-26] MEDS: PARoxetine HCL 20 MG TABLET (FP) PO SCH (22:28)
[2018-05-26] MEDS: THIAMINE HCL 100 MG TABLET (FP) PO SCH (22:29)
[2018-05-26] MEDS: hydrOXYzine PAMOATE 50 MG CAPSULE (FP) PO SCH (22:29)
[2018-05-27] MEDS: CALAMINE 8% TOPICAL LOTION 177 ML BOTTLE TP SCH ×6 (00:06→23:06)
[2018-05-27] MEDS: MINERAL OIL/PETROLAT/WATER TOPICAL CREAM 113 GM JAR TP SCH ×2 (00:07→23:06)
[2018-05-27] MEDS ORDERED: METHADONE HCL 10 MG TABLET (FOR DETOX USE ONLY) PO SCH (06:00)
[2018-05-27] MEDS: LACTULOSE 20 GM/30 ML UDC (FOR ORAL USE ONLY) PO SCH ×3 (06:29→22:17)
[2018-05-27] MEDS ORDERED: METHADONE HCL 5 MG TABLET PO SCH (06:30)
--- NOTE | 2018-05-27 09:04 | DS ---
[facility] Detox Discharge Summary Admission Date: 05/22/18 Discharge Date: 05/27/18 - Physical Exam Results Vital Signs: Vital Signs Temperature 97.7 F 05/27/18 07:07 Pulse Rate 78 05/27/18 07:07 Respiratory Rate 05/27/18 07:07 Blood Pressure 154/88 05/27/18 07:07 O2 Sat by Pulse Oximetry (%) - Medication Discharge Medications: Ambulatory Orders Gabapentin [Neurontin -] 600 mg PO HS #30 capsule 05/22/18 Paroxetine HCl [Paxil -] 40 mg PO HS #30 tablet 05/22/18 hydrOXYzine PAMOATE [Vistaril -] 50 mg PO HS #30 capsule 05/22/18 Furosemide [Lasix -] 20 mg PO DAILY #30 tablet 05/26/18 Lactulose (Oral Use) [Cephulac -] 20 gm PO TID #120 udc 05/26/18
[2018-05-27] MEDS: PRENATAL VITAMINS W/ FOLIC ACID TABLET (FP) PO SCH (10:23)
[2018-05-27] MEDS: NICOTINE 14 MG/24 HOURS TOPICAL PATCH TD SCH (10:23)
[2018-05-27] MEDS: FUROSEMIDE 20 MG TABLET (FP) PO SCH (10:23)
--- NOTE | 2018-05-27 15:54 | PN ---
S Progress Note (SOAP) Subjective: 63 years old female admitted on 05/22/18 for opiate withdrawal sx completed opiate detox regimen tolerated well denies opiate withdrawal sx Objective: 05/27/18 15:53 Vital Signs Temperature 98.2 F 05/27/18 14:01 Pulse Rate 92 H 05/27/18 14:01 Respiratory Rate 18 05/27/18 14:01 Blood Pressure 135/83 05/27/18 14:01 O2 Sat by Pulse Oximetry (%) Laboratory Last Values WBC 8.6 K/mm3 (4.0-10.0) 05/22/18 07:30 RBC 4.21 M/mm3 (3.60-5.2) 05/22/18 07:30 Hgb 13.5 GM/dL (10.7-15.3) 05/22/18 07:30 Hct 39.5 % (32.4-45.2) 05/22/18 07:30 MCV 94.0 fl (80-96) 05/22/18 07:30 MCH 32.0 pg (25.7-33.7) 05/22/18 07:30 MCHC 34.0 g/dl (32.0-36.0) 05/22/18 07:30 RDW 13.9 % (11.6-15.6) 05/22/18 07:30 Plt Count 145 K/MM3 (134-434) 05/22/18 07:30 MPV 11.5 fl (7.5-11.1) H 05/22/18 07:30 Sodium 137 mmol/L (136-145) 05/22/18 07:30 Potassium 3.8 mmol/L (3.5-5.1) 05/22/18 07:30 Chloride 101 mmol/L (98-107) 05/22/18 07:30 Carbon Dioxide 28 mmol/L (21-32) 05/22/18 07:30 Anion Gap 8 MMOL/L (8-16) 05/22/18 07:30 BUN 23 mg/dL (7-18) H 05/22/18 07:30 Creatinine 0.9 mg/dL (0.55-1.02) 05/22/18 07:30 Creat Clearance w eGFR > 60 (>60) 05/22/18 07:30 Random Glucose 118 mg/dL (74-106) H 05/22/18 07:30 Calcium 8.8 mg/dL (8.5-10.1) 05/22/18 07:30 Total Bilirubin 0.6 mg/dL (0.2-1.0) 05/22/18 07:30 AST 20 U/L (15-37) 05/22/18 07:30 ALT 18 U/L (12-78) 05/22/18 07:30 Alkaline Phosphatase 73 U/L (45-117) 05/22/18 07:30 Ammonia 71.31 umol/L (11-32) H 05/26/18 08:00 Total Protein 7.7 g/dl (6.4-8.2) 05/22/18 07:30 Albumin 4.3 g/dl (3.4-5.0) 05/22/18 07:30 Urine Color Dkyellow 05/22/18 09:05 Urine Appearance Cloudy 05/22/18 09:05 Urine pH 5.0 (5.0-8.0) 05/22/18 09:05 Ur Specific [place] 1.028 (1.001-1.035) 05/22/18 09:05 Urine Protein Negative (NEGATIVE) 05/22/18 09:05 Urine Glucose (UA) Negative (NEGATIVE) 05/22/18 09:05 Urine Ketones Negative (NEGATIVE) 05/22/18 09:05 Urine Blood Negative (NEGATIVE) 05/22/18 09:05 Urine Nitrite Negative (NEGATIVE) 05/22/18 09:05 Urine Bilirubin Negative (<2.0 mg/dL) 05/22/18 09:05 Urine Urobilinogen 4.0 e.u/dl mg/dL (0.2-1.0) H 05/22/18 09:05 Ur Leukocyte Esterase Trace (NEGATIVE) 05/22/18 09:05 Urine WBC (Auto) 5 /hpf (3-5) 05/22/18 09:05 Urine RBC (Auto) 2 /hpf (0-3) 05/22/18 09:05 Ur Epithelial Cells Moderate /HPF (FEW) 05/22/18 09:05 Calcium Oxalate Crystal Rare /hpf (NONE SEEN) 05/22/18 09:05 Urine Bacteria Few /hpf (NONE SEEN) 05/22/18 09:05 Hyaline Casts 2 /lpf 05/22/18 09:05 Urine Mucus Rare 05/22/18 09:05 Urine Yeast Rare 05/22/18 09:05 RPR Titer Nonreactive (NONREACTIVE) 05/22/18 09:00 lab noted ammonia elevation Assessment: 05/27/18 15:54 continue ammonia level monitoring Plan: continue lactulose repeat ammonia level 05/28/18
[2018-05-27] MEDS: cloNIDine HCL 0.1 MG TABLET PO PRN (18:20)
[2018-05-27] MEDS: THIAMINE HCL 100 MG TABLET (FP) PO SCH (22:18)
[2018-05-27] MEDS: hydrOXYzine PAMOATE 50 MG CAPSULE (FP) PO SCH (22:18)
[2018-05-27] MEDS: GABAPENTIN 300 MG CAPSULE (FP) PO SCH (22:18)
[2018-05-27] MEDS: PARoxetine HCL 20 MG TABLET (FP) PO SCH (22:18)
[2018-05-28] MEDS: LACTULOSE 20 GM/30 ML UDC (FOR ORAL USE ONLY) PO SCH ×2 (06:49→22:28)
[2018-05-28] MEDS: cloNIDine HCL 0.1 MG TABLET PO PRN (07:49)
--- NOTE | 2018-05-28 08:30 | DS ---
[facility] Detox Discharge Summary Admission Date: 05/22/18 Discharge Date: 05/28/18 - History Present History: Opioid Dependence Additional Comments: 63years old female admitted on 05/22/18 for opiate withdrawal sx completed opiate detox regimen tolerated well denies opiate withdrawal sx alert oriented x 3 no acute distress after[facility] - Physical Exam Results Vital Signs: Vital Signs Temperature 97 F L 05/28/18 06:24 Pulse Rate 86 05/28/18 06:24 Respiratory Rate 18 05/28/18 06:24 Blood Pressure 160/91 05/28/18 06:24 O2 Sat by Pulse Oximetry (%) Pertinent Admission Physical Exam Findings: opiate withdrawal sx Vital Signs Temperature 98.1 F 05/28/18 09:32 Pulse Rate 92 H 05/28/18 09:32 Respiratory Rate 18 05/28/18 09:32 Blood Pressure 145/82 05/28/18 09:32 O2 Sat by Pulse Oximetry (%) Laboratory Last Values WBC 8.6 K/mm3 (4.0-10.0) 05/22/18 07:30 RBC 4.21 M/mm3 (3.60-5.2) 05/22/18 07:30 Hgb 13.5 GM/dL (10.7-15.3) 05/22/18 07:30 Hct 39.5 % (32.4-45.2) 05/22/18 07:30 MCV 94.0 fl (80-96) 05/22/18 07:30 MCH 32.0 pg (25.7-33.7) 05/22/18 07:30 MCHC 34.0 g/dl (32.0-36.0) 05/22/18 07:30 RDW 13.9 % (11.6-15.6) 05/22/18 07:30 Plt Count 145 K/MM3 (134-434) 05/22/18 07:30 MPV 11.5 fl (7.5-11.1) H 05/22/18 07:30 Sodium 137 mmol/L (136-145) 05/22/18 07:30 Potassium 3.8 mmol/L (3.5-5.1) 05/22/18 07:30 Chloride 101 mmol/L (98-107) 05/22/18 07:30 Carbon Dioxide 28 mmol/L (21-32) 05/22/18 07:30 Anion Gap 8 MMOL/L (8-16) 05/22/18 07:30 BUN 23 mg/dL (7-18) H 05/22/18 07:30 Creatinine 0.9 mg/dL (0.55-1.02) 05/22/18 07:30 Creat Clearance w eGFR > 60 (>60) 05/22/18 07:30 Random Glucose 118 mg/dL (74-106) H 05/22/18 07:30 Calcium 8.8 mg/dL (8.5-10.1) 05/22/18 07:30 Total Bilirubin 0.6 mg/dL (0.2-1.0) 05/22/18 07:30 AST 20 U/L (15-37) 05/22/18 07:30 ALT 18 U/L (12-78) 05/22/18 07:30 Alkaline Phosphatase 73 U/L (45-117) 05/22/18 07:30 Ammonia 46.21 umol/L (11-32) H 05/28/18 07:00 Total Protein 7.7 g/dl (6.4-8.2) 05/22/18 07:30 Albumin 4.3 g/dl (3.4-5.0) 05/22/18 07:30 Urine Color Dkyellow 05/22/18 09:05 Urine Appearance Cloudy 05/22/18 09:05 Urine pH 5.0 (5.0-8.0) 05/22/18 09:05 Ur Specific [place] 1.028 (1.001-1.035) 05/22/18 09:05 Urine Protein Negative (NEGATIVE) 05/22/18 09:05 Urine Glucose (UA) Negative (NEGATIVE) 05/22/18 09:05 Urine Ketones Negative (NEGATIVE) 05/22/18 09:05 Urine Blood Negative (NEGATIVE) 05/22/18 09:05 Urine Nitrite Negative (NEGATIVE) 05/22/18 09:05 Urine Bilirubin Negative (<2.0 mg/dL) 05/22/18 09:05 Urine Urobilinogen 4.0 e.u/dl mg/dL (0.2-1.0) H 05/22/18 09:05 Ur Leukocyte Esterase Trace (NEGATIVE) 05/22/18 09:05 Urine WBC (Auto) 5 /hpf (3-5) 05/22/18 09:05 Urine RBC (Auto) 2 /hpf (0-3) 05/22/18 09:05 Ur Epithelial Cells Moderate /HPF (FEW) 05/22/18 09:05 Calcium Oxalate Crystal Rare /hpf (NONE SEEN) 05/22/18 09:05 Urine Bacteria Few /hpf (NONE SEEN) 05/22/18 09:05 Hyaline Casts 2 /lpf 05/22/18 09:05 Urine Mucus Rare 05/22/18 09:05 Urine Yeast Rare 05/22/18 09:05 RPR Titer Nonreactive (NONREACTIVE) 05/22/18 09:00 lab noted - Treatment Hospital Course: Detox Protocol Followed, Detoxed Safely, Responded well, Discharged Condition Good, Rehab Referral Accepted Patient has Accepted a Rehab Referral to: [facility] - Medication Discharge Medications: Ambulatory Orders Gabapentin [Neurontin -] 600 mg PO HS #30 capsule 05/22/18 Paroxetine HCl [Paxil -] 40 mg PO HS #30 tablet 05/22/18 hydrOXYzine PAMOATE [Vistaril -] 50 mg PO HS #30 capsule 05/22/18 Furosemide [Lasix -] 20 mg PO DAILY #30 tablet 05/26/18 Lactulose (Oral Use) [Cephulac -] 20 gm PO TID #120 udc 05/26/18 - Diagnosis (1) Liver enzyme elevation Current Visit: Yes Status: Acute (2) Alcohol dependence with uncomplicated withdrawal Current Visit: Yes Status: Acute (3) HTN (hypertension) Current Visit: Yes Status: Chronic Qualifiers: Hypertension type: essential hypertension Qualified Code(s): I10 - Essential (primary) hypertension (4) Nicotine dependence Current Visit: Yes Status: Acute Qualifiers: Nicotine product type: cigarettes Substance use status: in withdrawal Qualified Code(s): F17.213 - Nicotine dependence, cigarettes, with withdrawal (5) Opioid dependence with withdrawal Current Visit: Yes Status: Acute (6) GERD (gastroesophageal reflux disease) Current Visit: Yes Status: Chronic Qualifiers: Esophagitis presence: esophagitis presence not specified Qualified Code(s) : K21.9 - Gastro-esophageal reflux disease without esophagitis (7) Substance induced mood disorder Current Visit: Yes Status: Suspected - AMA Did Patient Leave Against Medical Advice: No
[2018-05-28] MEDS: CALAMINE 8% TOPICAL LOTION 177 ML BOTTLE TP SCH ×4 (11:24→22:29)
[2018-05-28] MEDS: PRENATAL VITAMINS W/ FOLIC ACID TABLET (FP) PO SCH (11:24)
[2018-05-28] MEDS: NICOTINE 14 MG/24 HOURS TOPICAL PATCH TD SCH (11:24)
[2018-05-28] MEDS: FUROSEMIDE 20 MG TABLET (FP) PO SCH (13:34)
--- NOTE | 2018-05-28 16:35 | PN ---
Psychiatric Progress Note Vital Signs: Vital Signs Period Temp Pulse Resp BP Sys/Johansen Pulse Ox Last 24 Hr 97 F-98.1 F 69-92 16-18 126-160/82-109 Date of Session: 05/28/18 Chief Complaint:: "I don't want to go home." HPI: Pt. with a history of opioids, alcohol and nicotine dependence. ROS: HTN, GERD Current Medications: Active Medications Generic Name Dose Route Start Last Admin Trade Name Freq PRN Reason Stop Dose Admin Al Hydroxide/Mg Hydroxide 30 ml 05/22/18 01:16 Mylanta Oral Suspension - PO Q6H PRN DYSPEPSIA Calamine 1 applic 05/22/18 18:00 05/28/18 13:46 Calamine 8% Topical Lotion - TP Not Given QID XAVIER Clonidine 0.2 mg 05/23/18 07:47 05/28/18 07:49 Catapres - PO 0.2 mg Q6H PRN Administration withdrawal sx's/htn Colloidal Oatmeal 1 applic 05/22/18 08:44 05/22/18 15:13 Aveeno Soap - TP 1 applic DAILY PRN Administration HYGEINE Eucalyptus/Menthol/Phenol/Sorbitol 1 each 05/22/18 01:16 05/26/18 05:46 Cepastat Lozenge - MM 1 each Q4H PRN Administration SORE THROAT Furosemide 20 mg 05/22/18 10:00 05/28/18 13:34 Lasix - PO Not Given DAILY XAVIER Gabapentin 600 mg 05/22/18 22:00 05/27/18 22:18 Neurontin - PO 600 mg HS XAVIER Administration Guaifenesin 10 ml 05/22/18 01:16 Robitussin Dm - PO Q6H PRN COUGH Hydroxyzine Pamoate 50 mg 05/22/18 22:00 05/27/18 22:18 Vistaril - PO 50 mg HS XAVIER Administration Ibuprofen 400 mg 05/22/18 01:16 05/24/18 07:01 Motrin - PO 400 mg Q6H PRN Administration PAIN LEVEL 4-6 Lactulose 20 gm 05/28/18 22:00 Cephulac (Oral Use) PO BID XAVIER Loperamide HCl 4 mg 05/22/18 01:16 Imodium - PO Q6H PRN DIARRHEA Magnesium Citrate 300 ml 05/22/18 01:16 Citroma - PO Q48H PRN CONSTIPATION Magnesium Hydroxide 30 ml 05/22/18 01:16 05/23/18 22:39 Milk Of Magnesia - PO 30 ml DAILY PRN Administration CONSTIPATION Multi-Ingredient Lotion 1 applic 05/22/18 22:00 05/27/18 23:06 Eucerin (Small Jar) - TP Not Given HS XAVIER Nicotine 14 mg 05/22/18 10:00 05/28/18 11:24 Nicoderm Patch - TD Not Given DAILY XAVIER Nicotine Polacrilex 2 mg 05/22/18 01:16 Nicorette Gum - BUC Q2H PRN NICOTINE REPLACEMENT RX Paroxetine HCl 40 mg 05/22/18 22:00 05/27/18 22:18 Paxil - PO 40 mg HS XAVIER Administration Multivit/Folic Acid/Iron 1 tab 05/22/18 10:00 05/28/18 11:24 Vitamins (Sjr) - PO Not Given DAILY XAVIER Pseudoephedrine/Triprolidine 1 combo 05/22/18 01:16 Actifed - PO TID PRN NASAL CONGESTION Thiamine HCl 100 mg 05/22/18 22:00 05/27/18 22:18 Vitamin B1 - PO 100 mg HS XAVIER Administration Medication(s) Change(s): No. Current Side Effect: No Lab tests ordered: No Lab tests reviewed: Yes Provider note:: [employer] Worker met with patient for psychatric follow up. Pt. presented as sad and tearful. Pt. upset about her discharge plan. States she needs rehab and is not happy about being discharged home. Pt. denies current thoughts to hurt herself but is worried if discharge she may begin to endorse suicidal ideation. Pt. requesting to continue treatment in rehab at [place]. Its recommended that patient remain on 6N until tomorrow due to risk of suicidality. She does not have family in [facility] and therefore spends the majority of her time alone. Pt. currently does not have any thoughts or urges to hurt self. Pt. is safe on the unit and does not require 1:1 observation. Patient is currently prescribed paxil 40mg daily + gabapentin 600mg qhs. Patient is compliant with current medication regime and is tolerating medications well. Will continue to monitor. Total face to face time:: 35 Mental Status Exam - Mental Status Exam Alert and Oriented to: Time, Place, Person Cognitive Function: Good Patient Appearance: Well Groomed Mood: Sad, Anxious Affect: Mood Congruent Patient Behavior: Crying, Cooperative Speech Pattern: Appropriate Voice Loudness: Normal Thought Process: Intact, Goal Oriented Thought Disorder: Not Present Hallucinations: Denies Suicidal Ideation: Denies Homicidal Ideation: Denies Insight/Judgement: Poor Sleep: Fair Appetite: Fair Muscle strength/Tone: Normal Gait/Station: Normal Psychiatric Treatment Plan - Problem List (1) Opioid dependence Current Visit: Yes (2) MDD (major depressive disorder) Current Visit: Yes (3) Nicotine dependence Current Visit: Yes Qualifiers: Nicotine product type: cigarettes Substance use status: uncomplicated Qualified Code(s): F17.210 - Nicotine dependence, cigarettes, uncomplicated (4) Substance induced mood disorder Current Visit: Yes (5) Alcohol dependence Current Visit: Yes
--- NOTE | 2018-05-28 17:01 | PN ---
S Progress Note Note: Vital Signs Temperature 97.5 F L 05/28/18 13:29 Pulse Rate 69 05/28/18 13:29 Respiratory Rate 18 05/28/18 13:29 Blood Pressure 126/82 05/28/18 13:29 O2 Sat by Pulse Oximetry (%) Patient scheduled for discharge today. Patient evaluated with psych which recommend patient to be discharge in AM d/t patient feeling sad, lack of risk for suicidality. Patient will be monitor overnight, if stable discharge in the morning.
[2018-05-28] MEDS: MENTHOL/PHENOL 1 EACH UD MM PRN (20:28)
[2018-05-28] MEDS: MINERAL OIL/PETROLAT/WATER TOPICAL CREAM 113 GM JAR TP SCH (22:27)
[2018-05-28] MEDS: PARoxetine HCL 20 MG TABLET (FP) PO SCH (22:27)
[2018-05-28] MEDS: hydrOXYzine PAMOATE 50 MG CAPSULE (FP) PO SCH (22:27)
[2018-05-28] MEDS: GABAPENTIN 300 MG CAPSULE (FP) PO SCH (22:27)
[2018-05-28] MEDS: THIAMINE HCL 100 MG TABLET (FP) PO SCH (22:27)
[2018-05-29 09:19] VITALS: PULSE 87; TEMP 98.8
[2018-05-29 09:20] VITALS: BP 150/85
--- NOTE | 2018-05-29 10:04 | DS ---
[facility] Detox Discharge Summary Admission Date: 05/22/18 Discharge Date: 05/29/18 - History Present History: Opioid Dependence Additional Comments: 63 years old female admitted on 05/22/18 for opiate withdrawal sx completed detox regimen evaluated by the psychiatrist scheduled to be discharged today case discussed with counselor that transportation from detox to [facility] inpatient rehab today patient agrees to go to [facility] via transportation patient is alert oriented x 3 no acute distress denies suicidal denies homocidal no self destructive behavior patient feels sad to leave the detox unit where the patient perceived good care from staff - Physical Exam Results Vital Signs: Vital Signs Temperature 98.8 F 05/29/18 09:19 Pulse Rate 87 05/29/18 09:19 Respiratory Rate 16 05/29/18 09:19 Blood Pressure 150/85 05/29/18 09:19 O2 Sat by Pulse Oximetry (%) Pertinent Admission Physical Exam Findings: opiate withdrawal sx Vital Signs Temperature 98.8 F 05/29/18 09:19 Pulse Rate 87 05/29/18 09:19 Respiratory Rate 16 05/29/18 09:19 Blood Pressure 150/85 05/29/18 09:19 O2 Sat by Pulse Oximetry (%) Laboratory Last Values WBC 8.6 K/mm3 (4.0-10.0) 05/22/18 07:30 RBC 4.21 M/mm3 (3.60-5.2) 05/22/18 07:30 Hgb 13.5 GM/dL (10.7-15.3) 05/22/18 07:30 Hct 39.5 % (32.4-45.2) 05/22/18 07:30 MCV 94.0 fl (80-96) 05/22/18 07:30 MCH 32.0 pg (25.7-33.7) 05/22/18 07:30 MCHC 34.0 g/dl (32.0-36.0) 05/22/18 07:30 RDW 13.9 % (11.6-15.6) 05/22/18 07:30 Plt Count 145 K/MM3 (134-434) 05/22/18 07:30 MPV 11.5 fl (7.5-11.1) H 05/22/18 07:30 Sodium 137 mmol/L (136-145) 05/22/18 07:30 Potassium 3.8 mmol/L (3.5-5.1) 05/22/18 07:30 Chloride 101 mmol/L (98-107) 05/22/18 07:30 Carbon Dioxide 28 mmol/L (21-32) 05/22/18 07:30 Anion Gap 8 MMOL/L (8-16) 05/22/18 07:30 BUN 23 mg/dL (7-18) H 05/22/18 07:30 Creatinine 0.9 mg/dL (0.55-1.02) 05/22/18 07:30 Creat Clearance w eGFR > 60 (>60) 05/22/18 07:30 Random Glucose 118 mg/dL (74-106) H 05/22/18 07:30 Calcium 8.8 mg/dL (8.5-10.1) 05/22/18 07:30 Total Bilirubin 0.6 mg/dL (0.2-1.0) 05/22/18 07:30 AST 20 U/L (15-37) 05/22/18 07:30 ALT 18 U/L (12-78) 05/22/18 07:30 Alkaline Phosphatase 73 U/L (45-117) 05/22/18 07:30 Ammonia 46.21 umol/L (11-32) H 05/28/18 07:00 Total Protein 7.7 g/dl (6.4-8.2) 05/22/18 07:30 Albumin 4.3 g/dl (3.4-5.0) 05/22/18 07:30 Urine Color Dkyellow 05/22/18 09:05 Urine Appearance Cloudy 05/22/18 09:05 Urine pH 5.0 (5.0-8.0) 05/22/18 09:05 Ur Specific [place] 1.028 (1.001-1.035) 05/22/18 09:05 Urine Protein Negative (NEGATIVE) 05/22/18 09:05 Urine Glucose (UA) Negative (NEGATIVE) 05/22/18 09:05 Urine Ketones Negative (NEGATIVE) 05/22/18 09:05 Urine Blood Negative (NEGATIVE) 05/22/18 09:05 Urine Nitrite Negative (NEGATIVE) 05/22/18 09:05 Urine Bilirubin Negative (<2.0 mg/dL) 05/22/18 09:05 Urine Urobilinogen 4.0 e.u/dl mg/dL (0.2-1.0) H 05/22/18 09:05 Ur Leukocyte Esterase Trace (NEGATIVE) 05/22/18 09:05 Urine WBC (Auto) 5 /hpf (3-5) 05/22/18 09:05 Urine RBC (Auto) 2 /hpf (0-3) 05/22/18 09:05 Ur Epithelial Cells Moderate /HPF (FEW) 05/22/18 09:05 Calcium Oxalate Crystal Rare /hpf (NONE SEEN) 05/22/18 09:05 Urine Bacteria Few /hpf (NONE SEEN) 05/22/18 09:05 Hyaline Casts 2 /lpf 05/22/18 09:05 Urine Mucus Rare 05/22/18 09:05 Urine Yeast Rare 05/22/18 09:05 RPR Titer Nonreactive (NONREACTIVE) 05/22/18 09:00 labnoted continue ammonia elevation treatment with lactulose with good effect - Treatment Hospital Course: Detox Protocol Followed, Detoxed Safely, Responded well, Discharged Condition Good, Rehab Referral Accepted Patient has Accepted a Rehab Referral to: [facility] / [facility] - Medication Discharge Medications: Ambulatory Orders Gabapentin [Neurontin -] 600 mg PO HS #30 capsule 05/22/18 Paroxetine HCl [Paxil -] 40 mg PO HS #30 tablet 05/22/18 hydrOXYzine PAMOATE [Vistaril -] 50 mg PO HS #30 capsule 05/22/18 Furosemide [Lasix -] 20 mg PO DAILY #30 tablet 05/26/18 Lactulose (Oral Use) [Cephulac -] 20 gm PO TID #120 udc 05/26/18 - Diagnosis (1) Liver enzyme elevation Current Visit: Yes Status: Acute (2) Alcohol dependence with uncomplicated withdrawal Current Visit: Yes Status: Acute (3) HTN (hypertension) Current Visit: Yes Status: Chronic Qualifiers: Hypertension type: essential hypertension Qualified Code(s): I10 - Essential (primary) hypertension (4) Nicotine dependence Current Visit: Yes Status: Acute Qualifiers: Nicotine product type: cigarettes Substance use status: in withdrawal Qualified Code(s): F17.213 - Nicotine dependence, cigarettes, with withdrawal (5) Opioid dependence with withdrawal Current Visit: Yes Status: Acute (6) GERD (gastroesophageal reflux disease) Current Visit: Yes Status: Chronic Qualifiers: Esophagitis presence: esophagitis presence not specified Qualified Code(s) : K21.9 - Gastro-esophageal reflux disease without esophagitis (7) Substance induced mood disorder Current Visit: Yes Status: Suspected - AMA Did Patient Leave Against Medical Advice: No
[2018-05-29] MEDS: LACTULOSE 20 GM/30 ML UDC (FOR ORAL USE ONLY) PO SCH (10:55)
[2018-05-29] MEDS: NICOTINE 14 MG/24 HOURS TOPICAL PATCH TD SCH (10:55)
[2018-05-29] MEDS: CALAMINE 8% TOPICAL LOTION 177 ML BOTTLE TP SCH ×2 (10:55→13:18)
[2018-05-29] MEDS: FUROSEMIDE 20 MG TABLET (FP) PO SCH (10:55)
[2018-05-29] MEDS: PRENATAL VITAMINS W/ FOLIC ACID TABLET (FP) PO SCH (10:55)
== END 2018-05-29 13:24 | disposition home or self-care (01) | DRG 897 ==
LOC: YASAS 19:57 → Y6N 05-22 01:54
PROC: HZ2ZZZZ Detoxification Services for Substance Abuse Treatment (ICD-10-PCS; principal; 2018-05-22)
DX: F11.23 Opioid dependence with withdrawal (principal); F19.282 Other psychoactive substance dependence with psychoactive substance-induced sleep disorder; F33.9 Major depressive disorder, recurrent, unspecified; E72.20 Disorder of urea cycle metabolism, unspecified; F10.230 Alcohol dependence with withdrawal, uncomplicated; F17.210 Nicotine dependence, cigarettes, uncomplicated; F19.24 Other psychoactive substance dependence with psychoactive substance-induced mood disorder; I10 Essential (primary) hypertension; K21.9 Gastro-esophageal reflux disease without esophagitis; R94.5 Abnormal results of liver function studies; R63.8 Other symptoms and signs concerning food and fluid intake; Z91.5 Personal history of self-harm
CPT/HCPCS: 36415; 80053; 81003; 81015; 82140; 85027; 86593; 93005; 93010; J0735

== ENCOUNTER 2018-09-04 12:14 | Inpatient (IN) | payer OTHER ==
[2018-09-04 13:17] VITALS: BMI 31.6
--- NOTE | 2018-09-04 14:17 | HP ---
COWS - Scale Resting Pulse: 1= [place] 81-100 Sweatin= Chills/Flushing Restless Observation: 1= Difficult to Sit Still Pupil Size: 1= Pupils >than Normal Bone or Joint Aches: 2= Severe Diffuse Aches Runny Nose/ Eye Tearin= Runny Nose/Eyes GI Upset > 30mins: 1= Stomach Cramp Tremor Observation: 2= Slight Tremor Visible Yawning Observation: 0= None Anxiety or Irritability: 2=Irritable/Anxious Goose Flesh Skin: 0=Smooth Skin COWS Score: 13 CIWA Score Nausea/Vomitin-Mild Nausea/No Vomiting Muscle Tremors: 2 Anxiety: 2 Agitation: 2 Paroxysmal Sweats: 2 Orientation: 2-Disoriented Date<2 days Tacttile Disturbances: 1-Very Mild Itch/Numbness Auditory Disturbances: 0-None Visual Disturbances: 2-Mild Sensitivity Headache: 1-Very Mild CIWA-Ar Total Score: 15 - Admission Criteria [facility] Guidelines: Admission for Medically Managed Detox: Requires at least one of the followin. CIWA greater than 12 2. Seizures within the past 24 hours 3. Delirium tremens within the past 24 hours 4. Hallucinations within the past 24 hours 5. Acute intervention needed for co occurring medical disorder 6. Acute intervention needed for co occurring psychiatric disorder 7. Severe withdrawal that cannot be handled at a lower level of care (continued vomiting, continued diarrhea, abnormal vital signs) requiring intravenous medication and/or fluids 8. Admission [facility] Chief Complaint: ETOH/HEROIN WITHDRAWAL. Allergies/Adverse Reactions: Allergies Allergy/AdvReac Type Severity Reaction Status Date / Time No Known Allergies Allergy Verified 09/04/18 13:24 History of Present Illness: PATIENT IS KNOWN TO [facility] AND THIS IS SECOND ADMISSION THIS YEAR, LAST 2017. PATIENT STARTED DRINKING AT AGE 17, DRINKS UP TO 7-16 OUNCE BEERS DAILY, LAST DRINK THIS MORNING. PATIENT ALSO SNIFFS 4 BAGS OF HEROIN DAILY X 3 YEARS, INTERMITTENTLY. LAST TIME SHE SNIFFED WAS LAST NIGHT. +BINGE DRINKER, FIRST DRINK UPON ARISING. PATIENT DENIES SEIZURES, FALLS AND BLACKOUTS. NO HISTORY OF OVERDOSE. PMH INCLUDES BIPOLAR DISORDER AND HTN. DENIES SUICIDE ATTEMPTS, SI AND HI. + COCAINE/TOBACCO USE. Exam Limitations: No Limitations - Ebola screening Have you traveled outside of the country in the last 21 days: No Have you had contact with anyone from an Ebola affected area: No Have you been sick,other than usual withdrawal symptoms: No Do you have a fever: No - Review of Systems Constitutional: Chills, Night Sweats, Changes in sleep EENT: reports: Tearing, Nose Congestion Respiratory: reports: No Symptoms reported Cardiac: reports: No Symptoms Reported GI: reports: Diarrhea, Nausea, Poor Appetite, Poor Fluid Intake, Abdominal cramping : reports: No Symptoms Reported Musculoskeletal: reports: Back Pain, Joint Pain, Muscle Pain Integumentary: reports: Sweating Neuro: reports: Headache, Numbness, Tremors Endocrine: reports: No Symptoms Reported Hematology: reports: No Symptoms Reported Psychiatric: reports: Anxious, Depressed Patient History - Patient Medical History Hx Anemia: No Hx Asthma: No Hx Chronic Obstructive Pulmonary Disease (COPD): No Hx Cancer: No Hx Cardiac Disorders: No Hx Congestive Heart Failure: No Hx Hypertension: Yes Hx Hypercholesterolemia: No Hx Pacemaker: No HX Cerebrovascular Accident: No Hx Seizures: No Hx Dementia: No Hx Diabetes: No Hx Gastrointestinal Disorders: No Hx Liver Disease: No Hx Genitourinary Disorders: No Hx Sexually Transmitted Disorders: No Hx Renal Disease (ESRD): No Hx Thyroid Disease: No Hx Human Immunodeficiency Virus (HIV): No Hx Hepatitis C: No Hx Depression: Yes Hx Suicide Attempt: No Hx Bipolar Disorder: No Hx Schizophrenia: No - Patient Surgical History Past Surgical History: Yes Hx Neurologic Surgery: No Hx Cataract Extraction: No Hx Cardiac Surgery: No Hx Lung Surgery: No Hx Breast Surgery: No Hx Breast Biopsy: No Hx Abdominal Surgery: No Hx Appendectomy: No Hx Section: Yes (partial hysterectomy) Hx Orthopedic Surgery: Yes (LEFT FOOT BUNION) Hx Hysterectomy: Yes Anesthesia Reaction: No - PPD History Previous Implant?: Yes Documented Results: Negative w/proof Date: 05/24/18 PPD to be Administered?: No - Reproductive History Patient : No - Smoking Cessation Smoking history: Current every day smoker Have you smoked in the past 12 months: Yes Aproximately how many cigarettes per day: 10 Cigars Per Day: 0 Hx Chewing Tobacco Use: No Initiated information on smoking cessation: Yes 'Breaking Loose' booklet given: 09/04/18 - Substance & Tx. History Hx Alcohol Use: Yes Hx Substance Use: Yes Substance Use Type: Alcohol, Cocaine, Heroin - Substances Abused Heroin Route: Inhalation Frequency: Daily Amount used: 3-4 bags Age of first use: 17 Date of Last Use: 09/03/18 Alcohol Route: Oral Frequency: Daily Amount used: 6-8 16oz cans of beer Age of first use: 17 Date of Last Use: 09/04/18 Crack Route: Smoking Frequency: 1-2 times per week Amount used: 1-2 bags Age of first use: 35 Date of Last Use: 09/01/18 Family Disease History - Family Disease History Family Disease History: Other: Mother (ALCOHOLISM) Admission Physical Exam [facility] - Vital Signs Vital Signs: Vital Signs - 24 hr 09/04/18 13:09 Temperature 98.5 F Pulse Rate 94 H Respiratory 18 Rate Blood Pressure 144/89 - Physical General Appearance: Yes: Nourished, Appropriately Dressed, Tremorous, Sweating, Anxious HEENTM: Yes: EOMI, Hearing grossly Normal, Normocephalic, Normal Voice, LINDSAY, Pharynx Normal, Nasal Congestion Respiratory: Yes: Chest Non-Tender, Lungs Clear, Normal Breath Sounds, No Respiratory Distress, No Accessory Muscle Use Neck: Yes: No masses,lesions,Nodules, Supple, Trachea in good position Breast: Yes: Breast Exam Deferred Cardiology: Yes: Regular Rhythm, Regular Rate, S1, S2 Abdominal: Yes: Normal Bowel Sounds, Non Tender, Soft Genitourinary: Yes: Within Normal Limits Back: Yes: Muscle Spasm Musculoskeletal: Yes: full range of Motion, Gait Steady, Back pain, Muscle Pain Extremities: Yes: Normal Inspection, Normal Range of Motion, Non-Tender, Tremors , Swelling Neurological: Yes: wiener packer II-XII NML intact, Alert, Motor Strength 5/5, Depressed Affect Integumentary: Yes: Normal Color, Warm, Moist Lymphatic: Yes: Within Normal Limits - Diagnostic (1) Bipolar disorder Current Visit: Yes Status: Chronic Qualifiers: Active/Remission status: remission status unspecified Qualified Code(s): F31.9 - Bipolar disorder, unspecified (2) Alcohol dependence with uncomplicated withdrawal Current Visit: Yes Status: Acute (3) Nicotine dependence Current Visit: Yes Status: Chronic Qualifiers: Nicotine product type: cigarettes Substance use status: in withdrawal Qualified Code(s): F17.213 - Nicotine dependence, cigarettes, with withdrawal (4) Opioid dependence with withdrawal Current Visit: Yes Status: Acute Cleared for Admission [facility] - Detox or Rehab [facility] Level of Care: Medically Managed Detox Regimen/Protocol: Methadone/Librium [facility] Breath Alcohol Content Breath Alcohol Content: 0 Urine Pregancy Test - Result Urine Test Results: Negative- NO Line Present Urine Drug Screen - Results Drug Screen Negative: No Urine Drug Screen Results: OPI-Opiates, FEN-Fentanyl
[2018-09-04] MEDS ORDERED: IBUPROFEN 400 MG TABLET (FP) PO PRN (14:23)
[2018-09-04] MEDS ORDERED: MAG HYDROX/AL HYDROX/SIMETH 30 ML UNIT-DOSE CUP PO PRN (14:23)
[2018-09-04] MEDS ORDERED: hydrOXYzine PAMOATE 50 MG CAPSULE (FP) PO PRN (14:23)
[2018-09-04] MEDS ORDERED: MAGNESIUM CITRATE 300 ML BOTTLE PO PRN (14:23)
[2018-09-04] MEDS ORDERED: guaiFENesin/D-METHORPHAN HB 10 ML UNIT-DOSE CUPS PO PRN (14:23)
[2018-09-04] MEDS ORDERED: NICOTINE POLACRILEX 2 MG GUM BC PRN (14:23)
[2018-09-04] MEDS ORDERED: LOPERAMIDE HCL 2 MG CAPSULE PO PRN (14:23)
[2018-09-04] MEDS ORDERED: ACETAMINOPHEN 325 MG TABLET (FP) PO PRN (14:23)
[2018-09-04] MEDS ORDERED: P-EPHED 60MG/TRIPROLIDI 2.5MG TABLET PO PRN (14:23)
[2018-09-04] MEDS ORDERED: chlordiazePOXIDE HCL 25 MG CAPSULE PO PRN (14:25)
[2018-09-04] MEDS ORDERED: METHADONE HCL 10 MG TABLET (FOR DETOX USE ONLY) PO ONE ×2 (15:00→23:00)
[2018-09-04] MEDS: chlordiazePOXIDE HCL 25 MG CAPSULE PO SCH ×2 (17:20→22:36)
[2018-09-04] MEDS: THIAMINE HCL 100 MG TABLET (FP) PO SCH (22:36)
[2018-09-04] MEDS: MELATONIN 5 MG TABLETS PO PRN (22:37)
[2018-09-05] MEDS: chlordiazePOXIDE HCL 25 MG CAPSULE PO SCH ×4 (05:24→22:25)
--- NOTE | 2018-09-05 09:19 | CONSULT ---
[facility] Psychiatric Consult - Data Date of interview: 09/05/18 Admission source: [facility] Identifying data: Patient is a 63 year old single female, mother of two, unemployed, domiciled, and is supported by [facility]. This is one of multiple admissions for patient. Patient admitted to for opiate and alcohol dependence. Substance Abuse History: Smoking Cessation. Smoking history: Current every day smoker. Have you smoked in the past 12 months: Yes. Aproximately how many cigarettes per day: 10. Cigars Per Day: 0. Hx Chewing Tobacco Use: No. Initiated information on smoking cessation: Yes. 'Breaking Loose' booklet given : 09/04/18. - Substance & Tx. History. Hx Alcohol Use: Yes. Hx Substance Use : Yes. Substance Use Type: Alcohol, Cocaine, Heroin. - Substances Abused. Heroin. Route: Inhalation. Frequency: Daily. Amount used: 3-4 bags. Age of first use: 17. Date of Last Use: 09/03/18. Alcohol. Route: Oral. Frequency: Daily. Amount used: 6-8 16oz cans of beer. Age of first use: 17. Date of Last Use: 09/04/18. Crack. Route: Smoking. Frequency: 1-2 times per week. Amount used: 1-2 bags. Age of first use: 35. Date of Last Use: Medical History: hypertension, partial hysterectomy Psychiatric History: Patient's first psychiatric contact was in 1998 after having a nervous breakdown. She was admitted to [facility] and prescribed psychotropic medications. Patient's most recent psychiatric hospitalization was approximately 9 years ago (unable to recall facility). Patient denies current outpatient psychiatric care. States her current medication regiman consist of paxil 40mg HS + Gabapention 300mg HS. She receives her refills from her primary care physician at [facility] . Patient denies h/o suicide attempt. Physical/Sexual Abuse/Trauma History: denies. Mental Status Exam - Mental Status Exam Alert and Oriented to: Time, Place, Person Cognitive Function: Good Patient Appearance: Well Groomed Mood: Euthymic Affect: Appropriate Patient Behavior: Appropriate, Cooperative Speech Pattern: Appropriate Voice Loudness: Normal Thought Process: Intact Thought Disorder: Not Present Hallucinations: Denies Suicidal Ideation: Denies Homicidal Ideation: Denies Insight/Judgement: Poor Sleep: Poorly Appetite: Fair Muscle strength/Tone: Normal Gait/Station: Normal Psychiatric Findings - Problem List ([place] 1, 2,3) (1) Alcohol dependence with uncomplicated withdrawal Current Visit: Yes Status: Acute (2) Opioid dependence with withdrawal Current Visit: Yes Status: Acute (3) Nicotine dependence Current Visit: Yes Status: Chronic Qualifiers: Nicotine product type: cigarettes Substance use status: in withdrawal Qualified Code(s): F17.213 - Nicotine dependence, cigarettes, with withdrawal (4) Substance induced mood disorder Current Visit: Yes Status: Acute (5) Substance-induced sleep disorder Current Visit: Yes Status: Acute - Initial Treatment Plan Initial Treatment Plan: Psychoeducation provided. Detoxification in progress. Will order Paxil 20mg (reports sub-optimal adherence) daily + Gabapentin 300mg HS. Benefits and side effects discussed. Verbal consent given.
[2018-09-05] MEDS ORDERED: METHADONE HCL 10 MG TABLET (FOR DETOX USE ONLY) PO SCH (10:00)
[2018-09-05 10:11] LABS: ALBUMIN 3.8 g/dl (3.4-5.0); ALK PHOS 89 U/L (45-117); ANION GAP 7 MMOL/L (8-16); BLOOD UREA NITROGEN 9 mg/dL (7-18); CALCIUM 8.3 mg/dL (8.5-10.1); CHLORIDE 102 mmol/L (98-107); CO2 30 mmol/L (21-32); CREATININE 0.8 mg/dL (0.55-1.3); GLUCOSE,RANDOM 99 mg/dL (74-106); POTASSIUM 3.3 mmol/L (3.5-5.1); SGOT/AST 36 U/L (15-37); SGPT/ALT 25 U/L (13-61); SODIUM 138 mmol/L (136-145); TOT PROT 6.6 g/dl (6.4-8.2)
[2018-09-05 10:22] LABS: HEMATOCRIT 43.4 % (32.4-45.2); HEMOGLOBIN 13.7 GM/dL (10.7-15.3); MCH 29.5 pg (25.7-33.7); MCHC 31.5 g/dl (32.0-36.0); MEAN CELL VOLUME 93.5 fl (80-96); MEAN PLT VOLUME 12.4 fl (7.5-11.1); PLATELET COUNT 99 K/MM3 (134-434); RBC 4.64 M/mm3 (3.60-5.2); RDW 15.5 % (11.6-15.6); WHITE BLOOD COUNT 6.5 K/mm3 (4.0-10.0)
[2018-09-05] MEDS: PRENATAL VITAMINS W/ FOLIC ACID TABLET (FP) PO SCH (10:38)
--- NOTE | 2018-09-05 12:55 | PN ---
[facility] CIWA - CIWA Score Nausea/Vomitin-No Nausea/No Vomiting Muscle Tremors: 3 Anxiety: 3 Agitation: 3 Paroxysmal Sweats: 3 Orientation: 0-Oriented Tacttile Disturbances: 0-None Auditory Disturbances: 0-None Visual Disturbances: 0-None Headache: 0-None Present CIWA-Ar Total Score: 12 S COWS - Scale Resting Pulse: 0= [place] 80 or Below Sweatin=Flushed/Facial Moisture Restless Observation: 1= Difficult to Sit Still Pupil Size: 0= Normal to Room Light Bone or Joint Aches: 1= Mild Discomfort Runny Nose/ Eye Tearin= Nasal Congestion GI Upset > 30mins: 0= None Tremor Observation of Outstretched Hands: 1= Tremor [place], Not Seen Yawning Observation: 1= 1-2x During Session Anxiety or Irritability: 1=Feels Anxious/Irritable Goose Flesh Skin: 3=Piloerection COWS Score: 11 S Progress Note (SOAP) Subjective: sweats chills agitation body aches interrupted sleep Objective: 09/05/18 12:54 Vital Signs Temperature 97.9 F 09/05/18 09:25 Pulse Rate 80 09/05/18 09:25 Respiratory Rate 18 09/05/18 09:25 Blood Pressure 113/55 L 09/05/18 09:25 O2 Sat by Pulse Oximetry (%) Laboratory Tests 09/05/18 09/05/18 09/05/18 09:00 09:00 09:00 WBC 6.5 RBC 4.64 Hgb 13.7 Hct 43.4 MCV 93.5 MCH 29.5 MCHC 31.5 L RDW 15.5 D Plt Count 99 L D MPV 12.4 H Sodium 138 Potassium 3.3 L Chloride 102 Carbon Dioxide 30 Anion Gap 7 L BUN 9 Creatinine 0.8 Creat Clearance w eGFR > 60 Random Glucose 99 Calcium 8.3 L Total Bilirubin 1.0 AST 36 ALT 25 Alkaline Phosphatase 89 Total Protein 6.6 Albumin 3.8 RPR Titer Nonreactive potassium 3.3 will order kdur for supplement aaox3 ambulating no acute distress Assessment: 09/05/18 12:54 withdrawal sx Plan: continue detox increase fluids kdur [id number] 4 days ordered
[2018-09-05] MEDS: POTASSIUM CHLORIDE TABS 20 MEQ TABLET.ER (FP) PO SCH (14:04)
[2018-09-05] MEDS: MAGNESIUM HYDROX 2400MG/30ML ORAL SUSPENSION 30 ML CUP PO PRN (15:38)
[2018-09-05] MEDS ORDERED: CLONIDINE HCL 0.3 MG PO SCH (22:00)
[2018-09-05] MEDS: cloNIDine HCL 0.1 MG TABLET PO SCH (22:25)
[2018-09-05] MEDS: THIAMINE HCL 100 MG TABLET (FP) PO SCH (22:25)
[2018-09-05] MEDS: PARoxetine HCL 20 MG TABLET (FP) PO SCH (22:25)
[2018-09-05] MEDS: GABAPENTIN 300 MG CAPSULE (FP) PO SCH (22:25)
[2018-09-05] MEDS: MELATONIN 5 MG TABLETS PO PRN (22:26)
[2018-09-05] MEDS: LISINOPRIL 10 MG TABLET (FP) PO SCH (22:27)
[2018-09-05] MEDS ORDERED: hydrOXYzine PAMOATE 50 MG CAPSULE (FP) PO ONE (23:05)
[2018-09-06] MEDS: chlordiazePOXIDE HCL 25 MG CAPSULE PO SCH ×2 (05:21→10:46)
[2018-09-06] MEDS: PRENATAL VITAMINS W/ FOLIC ACID TABLET (FP) PO SCH (10:46)
[2018-09-06] MEDS: FUROSEMIDE 20 MG TABLET (FP) PO SCH (10:46)
[2018-09-06] MEDS: cloNIDine HCL 0.1 MG TABLET PO SCH ×2 (10:46→22:07)
[2018-09-06] MEDS: amLODIPine BESYLATE 10 MG TABLET (FP) PO SCH (10:46)
[2018-09-06] MEDS: LISINOPRIL 10 MG TABLET (FP) PO SCH ×2 (10:46→22:08)
[2018-09-06] MEDS: METHADONE HCL 5 MG TABLET (FOR DETOX USE ONLY) PO SCH (10:46)
[2018-09-06] MEDS: POTASSIUM CHLORIDE TABS 20 MEQ TABLET.ER (FP) PO SCH (10:47)
--- NOTE | 2018-09-06 11:05 | PN ---
[facility] CIWA - CIWA Score Nausea/Vomitin-No Nausea/No Vomiting Muscle Tremors: 3 Anxiety: 3 Agitation: 3 Paroxysmal Sweats: 2 Orientation: 0-Oriented Tacttile Disturbances: 0-None Auditory Disturbances: 0-None Visual Disturbances: 0-None Headache: 0-None Present CIWA-Ar Total Score: 11 S COWS - Scale Resting Pulse: 1= [place] 81-100 Sweatin=Flushed/Facial Moisture Restless Observation: 0= Sits Still Pupil Size: 0= Normal to Room Light Bone or Joint Aches: 2= Severe Diffuse Aches Runny Nose/ Eye Tearin= Nasal Congestion GI Upset > 30mins: 0= None Tremor Observation of Outstretched Hands: 2= Slight Tremor Visible Yawning Observation: 2= >3x During Session Anxiety or Irritability: 2=Irritable/Anxious Goose Flesh Skin: 0=Smooth Skin COWS Score: 12 S Progress Note (SOAP) Subjective: interrupted sleep body aches sweats agitation Objective: 09/06/18 11:12 Vital Signs Temperature 99.0 F 09/06/18 09:17 Pulse Rate 89 09/06/18 09:17 Respiratory Rate 20 09/06/18 09:17 Blood Pressure 137/93 09/06/18 09:17 O2 Sat by Pulse Oximetry (%) Laboratory Tests 09/05/18 09/05/18 09/05/18 09:00 09:00 09:00 WBC 6.5 RBC 4.64 Hgb 13.7 Hct 43.4 MCV 93.5 MCH 29.5 MCHC 31.5 L RDW 15.5 D Plt Count 99 L D MPV 12.4 H Sodium 138 Potassium 3.3 L Chloride 102 Carbon Dioxide 30 Anion Gap 7 L BUN 9 Creatinine 0.8 Creat Clearance w eGFR > 60 Random Glucose 99 Calcium 8.3 L Total Bilirubin 1.0 AST 36 ALT 25 Alkaline Phosphatase 89 Total Protein 6.6 Albumin 3.8 RPR Titer Nonreactive aaox3 ambulating no acute distress Assessment: 09/06/18 11:12 withdrawal sx Plan: continue detox increase fluids
[2018-09-06] MEDS: chlordiazePOXIDE 5 MG CAPSULE PO SCH ×2 (17:32→22:08)
[2018-09-06] MEDS: METHYL SALICYLATE/MENTHOL OINT 30 GM TUBE TP SCH (22:07)
[2018-09-06] MEDS: PARoxetine HCL 20 MG TABLET (FP) PO SCH (22:08)
[2018-09-06] MEDS: THIAMINE HCL 100 MG TABLET (FP) PO SCH (22:08)
[2018-09-06] MEDS: GABAPENTIN 300 MG CAPSULE (FP) PO SCH (22:08)
[2018-09-06] MEDS: MELATONIN 5 MG TABLETS PO PRN (22:08)
[2018-09-06] MEDS ORDERED: hydrOXYzine PAMOATE 25 MG CAPSULE (FP) PO ONE (23:00)
[2018-09-07] MEDS: chlordiazePOXIDE 5 MG CAPSULE PO SCH ×2 (06:17→10:43)
[2018-09-07] MEDS: cloNIDine HCL 0.1 MG TABLET PO SCH ×2 (10:36→22:23)
[2018-09-07] MEDS: PRENATAL VITAMINS W/ FOLIC ACID TABLET (FP) PO SCH (10:36)
[2018-09-07] MEDS: FUROSEMIDE 20 MG TABLET (FP) PO SCH (10:37)
[2018-09-07] MEDS: METHADONE HCL 5 MG TABLET (FOR DETOX USE ONLY) PO SCH (10:37)
[2018-09-07] MEDS: METHYL SALICYLATE/MENTHOL OINT 30 GM TUBE TP SCH ×2 (10:37→22:24)
[2018-09-07] MEDS: LISINOPRIL 10 MG TABLET (FP) PO SCH ×2 (10:38→22:23)
[2018-09-07] MEDS: POTASSIUM CHLORIDE TABS 20 MEQ TABLET.ER (FP) PO SCH (10:38)
[2018-09-07] MEDS: amLODIPine BESYLATE 10 MG TABLET (FP) PO SCH (10:38)
--- NOTE | 2018-09-07 12:07 | PN ---
[facility] Progress Note (SOAP) Subjective: irritable i need my visitril to help me sleep at night sweats interrupted sleep Objective: 09/07/18 12:07 Vital Signs Temperature 97.9 F 09/07/18 10:23 Pulse Rate 75 09/07/18 10:23 Respiratory Rate 18 09/07/18 10:23 Blood Pressure 100/67 09/07/18 10:23 O2 Sat by Pulse Oximetry (%) aaox3 ambulating no acute distress Assessment: 09/07/18 12:08 withdrawal sx Plan: continue detox increase fluids visitirl 25mg prn
[2018-09-07] MEDS: chlordiazePOXIDE HCL 10 MG CAPSULE PO SCH ×2 (17:35→22:23)
[2018-09-07] MEDS: hydrOXYzine PAMOATE 25 MG CAPSULE (FP) PO PRN ×2 (17:36→22:23)
[2018-09-07] MEDS: PARoxetine HCL 20 MG TABLET (FP) PO SCH (22:23)
[2018-09-07] MEDS: THIAMINE HCL 100 MG TABLET (FP) PO SCH (22:23)
[2018-09-07] MEDS: GABAPENTIN 300 MG CAPSULE (FP) PO SCH (22:23)
[2018-09-07] MEDS: MAGNESIUM HYDROX 2400MG/30ML ORAL SUSPENSION 30 ML CUP PO PRN (22:52)
--- NOTE | 2018-09-08 | PN ---
S Progress Note (SOAP) Subjective: Patient c/o swelling of legs. States providers are changing her medications and that is not getting the 40 mg Lasix her physician prescribed. Objective: A&O. BLE slight pitting edema ankles to mid calf. Each ankle, 3 " above is 10 inches circumference. Pedal pulses present w/ cap refill < 3 sec. Patient seen with legs dangling at side of bed. Vital Signs - 24 hr 09/07/18 09/07/18 09/07/18 03:30 06:42 10:16 Temperature 97.0 F L 97.9 F Pulse Rate 68 75 Respiratory 18 18 18 Rate Blood Pressure 103/71 100/67 09/07/18 09/07/18 09/07/18 10:23 15:34 17:25 Temperature 97.9 F 98.4 F 97.2 F L Pulse Rate 75 90 84 Respiratory 18 18 16 Rate Blood Pressure 100/67 138/87 135/81 09/07/18 09/07/18 21:27 23:49 Temperature 98.2 F Pulse Rate 79 89 Respiratory 18 Rate Blood Pressure 136/79 144/85 Laboratory Last Values WBC 6.5 K/mm3 (4.0-10.0) 09/05/18 09:00 RBC 4.64 M/mm3 (3.60-5.2) 09/05/18 09:00 Hgb 13.7 GM/dL (10.7-15.3) 09/05/18 09:00 Hct 43.4 % (32.4-45.2) 09/05/18 09:00 MCV 93.5 fl (80-96) 09/05/18 09:00 MCH 29.5 pg (25.7-33.7) 09/05/18 09:00 MCHC 31.5 g/dl (32.0-36.0) L 09/05/18 09:00 RDW 15.5 % (11.6-15.6) D 09/05/18 09:00 Plt Count 99 K/MM3 (134-434) L D 09/05/18 09:00 MPV 12.4 fl (7.5-11.1) H 09/05/18 09:00 Sodium 138 mmol/L (136-145) 09/05/18 09:00 Potassium 3.3 mmol/L (3.5-5.1) L 09/05/18 09:00 Chloride 102 mmol/L (98-107) 09/05/18 09:00 Carbon Dioxide 30 mmol/L (21-32) 09/05/18 09:00 Anion Gap 7 MMOL/L (8-16) L 09/05/18 09:00 BUN 9 mg/dL (7-18) 09/05/18 09:00 Creatinine 0.8 mg/dL (0.55-1.3) 09/05/18 09:00 Creat Clearance w eGFR > 60 (>60) 09/05/18 09:00 Random Glucose 99 mg/dL (74-106) 09/05/18 09:00 Calcium 8.3 mg/dL (8.5-10.1) L 09/05/18 09:00 Total Bilirubin 1.0 mg/dL (0.2-1) 09/05/18 09:00 AST 36 U/L (15-37) 09/05/18 09:00 ALT 25 U/L (13-61) 09/05/18 09:00 Alkaline Phosphatase 89 U/L (45-117) 09/05/18 09:00 Total Protein 6.6 g/dl (6.4-8.2) 09/05/18 09:00 Albumin 3.8 g/dl (3.4-5.0) 09/05/18 09:00 RPR Titer Nonreactive (NONREACTIVE) 09/05/18 09:00 Labs reviewed. Assessment: Continuous BLE Decreased serum potassium Plan: Home medications reviewed - continue Lasix 20 mg as written. Reviewed episodes of low blood pressure and how it affects holding of medication. Patient encouraged to f/u w/ PCP upon discharge. Foot of bed elevated and encouraged to elevate legs during day and at night. Encouraged avoidance of sodium intake. Repeat serum electrolytes in am.
[2018-09-08] MEDS: chlordiazePOXIDE HCL 10 MG CAPSULE PO SCH ×2 (06:03→11:34)
[2018-09-08] MEDS ORDERED: METHADONE HCL 10 MG TABLET (FOR DETOX USE ONLY) PO SCH (10:00)
[2018-09-08 10:21] LABS: POTASSIUM 4.4 mmol/L (3.5-5.1)
[2018-09-08] MEDS: LISINOPRIL 10 MG TABLET (FP) PO SCH ×2 (10:49→22:24)
[2018-09-08] MEDS: PRENATAL VITAMINS W/ FOLIC ACID TABLET (FP) PO SCH (10:49)
[2018-09-08] MEDS: POTASSIUM CHLORIDE TABS 20 MEQ TABLET.ER (FP) PO SCH (10:49)
[2018-09-08] MEDS: amLODIPine BESYLATE 10 MG TABLET (FP) PO SCH (10:49)
[2018-09-08] MEDS: cloNIDine HCL 0.1 MG TABLET PO SCH ×2 (10:49→22:24)
[2018-09-08] MEDS: FUROSEMIDE 20 MG TABLET (FP) PO SCH (10:49)
[2018-09-08] MEDS: METHYL SALICYLATE/MENTHOL OINT 30 GM TUBE TP SCH ×2 (10:50→22:27)
[2018-09-08] MEDS: MENTHOL/PHENOL 1 EACH UD MM PRN ×2 (10:54→15:41)
--- NOTE | 2018-09-08 12:30 | PN ---
[facility] Progress Note (SOAP) Subjective: feeling better no tremor no body aches less sweat Objective: 09/08/18 12:28 Vital Signs Temperature 97.0 F L 09/08/18 09:36 Pulse Rate 84 09/08/18 09:36 Respiratory Rate 18 09/08/18 09:36 Blood Pressure 140/82 09/08/18 09:36 O2 Sat by Pulse Oximetry (%) Laboratory Last Values WBC 6.5 K/mm3 (4.0-10.0) 09/05/18 09:00 RBC 4.64 M/mm3 (3.60-5.2) 09/05/18 09:00 Hgb 13.7 GM/dL (10.7-15.3) 09/05/18 09:00 Hct 43.4 % (32.4-45.2) 09/05/18 09:00 MCV 93.5 fl (80-96) 09/05/18 09:00 MCH 29.5 pg (25.7-33.7) 09/05/18 09:00 MCHC 31.5 g/dl (32.0-36.0) L 09/05/18 09:00 RDW 15.5 % (11.6-15.6) D 09/05/18 09:00 Plt Count 99 K/MM3 (134-434) L D 09/05/18 09:00 MPV 12.4 fl (7.5-11.1) H 09/05/18 09:00 Sodium 141 mmol/L (136-145) 09/08/18 07:30 Potassium 4.4 mmol/L (3.5-5.1) 09/08/18 07:30 Chloride 108 mmol/L (98-107) H 09/08/18 07:30 Carbon Dioxide 29 mmol/L (21-32) 09/08/18 07:30 Anion Gap 4 MMOL/L (8-16) L 09/08/18 07:30 BUN 9 mg/dL (7-18) 09/05/18 09:00 Creatinine 0.8 mg/dL (0.55-1.3) 09/05/18 09:00 Creat Clearance w eGFR > 60 (>60) 09/05/18 09:00 Random Glucose 99 mg/dL (74-106) 09/05/18 09:00 Calcium 8.3 mg/dL (8.5-10.1) L 09/05/18 09:00 Total Bilirubin 1.0 mg/dL (0.2-1) 09/05/18 09:00 AST 36 U/L (15-37) 09/05/18 09:00 ALT 25 U/L (13-61) 09/05/18 09:00 Alkaline Phosphatase 89 U/L (45-117) 09/05/18 09:00 Total Protein 6.6 g/dl (6.4-8.2) 09/05/18 09:00 Albumin 3.8 g/dl (3.4-5.0) 09/05/18 09:00 RPR Titer Nonreactive (NONREACTIVE) 09/05/18 09:00 lab noted Assessment: 09/08/18 12:30 mild withdrawal sx discontinue potassium Plan: medically supervised detox
[2018-09-08] MEDS ORDERED: FUROSEMIDE 20 MG TABLET (FP) PO ONE (14:25)
[2018-09-08] MEDS: PETROLATUM, WHITE 30 GM TUBE TP SCH (15:39)
[2018-09-08] MEDS: MELATONIN 5 MG TABLETS PO PRN (22:24)
[2018-09-08] MEDS: GABAPENTIN 300 MG CAPSULE (FP) PO SCH (22:24)
[2018-09-08] MEDS: PARoxetine HCL 20 MG TABLET (FP) PO SCH (22:24)
[2018-09-08] MEDS: hydrOXYzine PAMOATE 25 MG CAPSULE (FP) PO PRN (22:26)
[2018-09-08] MEDS: THIAMINE HCL 100 MG TABLET (FP) PO SCH (22:27)
[2018-09-09] MEDS ORDERED: METHADONE HCL 5 MG TABLET (FOR DETOX USE ONLY) PO SCH (06:00)
[2018-09-09] MEDS: hydrOXYzine PAMOATE 25 MG CAPSULE (FP) PO PRN (06:02)
--- NOTE | 2018-09-09 09:10 | DS ---
[facility] Detox Discharge Summary Admission Date: 09/04/18 Discharge Date: 09/09/18 - History Present History: Alcohol Dependence, Opioid Dependence - Physical Exam Results Vital Signs: Vital Signs Temperature 97.7 F 09/09/18 07:08 Pulse Rate 72 09/09/18 07:08 Respiratory Rate 18 09/09/18 07:08 Blood Pressure 136/84 09/09/18 07:08 O2 Sat by Pulse Oximetry (%) - Treatment Hospital Course: Detox Protocol Followed, Detoxed Safely, Responded well, Discharged Condition Good, Rehab Referral Accepted - Medication Discharge Medications: Ambulatory Orders Paroxetine HCl [Paxil -] 40 mg PO HS #30 tablet 05/22/18 hydrOXYzine PAMOATE [Vistaril -] 50 mg PO HS #30 capsule 05/22/18 Clonidine HCl [Catapres] 0.3 mg PO BID 09/04/18 Gabapentin [Neurontin -] 300 mg PO HS 09/04/18 Amlodipine Besylate [Norvasc -] 10 mg PO DAILY #14 tablet 09/08/18 Furosemide [Lasix -] 20 mg PO DAILY #14 tablet 09/08/18 - Diagnosis (1) Alcohol dependence with uncomplicated withdrawal Current Visit: Yes Status: Chronic (2) Hypokalemia Current Visit: No Status: Resolved (3) Opioid dependence with withdrawal Current Visit: Yes Status: Chronic (4) Substance induced mood disorder Current Visit: Yes Status: Acute (5) Substance-induced sleep disorder Current Visit: Yes Status: Acute (6) Bipolar disorder Current Visit: Yes Status: Chronic Qualifiers: Active/Remission status: remission status unspecified Qualified Code(s): F31.9 - Bipolar disorder, unspecified (7) Nicotine dependence Current Visit: Yes Status: Chronic Qualifiers: Nicotine product type: cigarettes Substance use status: uncomplicated Qualified Code(s): F17.210 - Nicotine dependence, cigarettes, uncomplicated (8) At risk for dehydration due to poor fluid intake Current Visit: No Status: Acute (9) Drug-induced mood disorder Current Visit: No Status: Acute (10) Liver enzyme elevation Current Visit: No Status: Acute (11) MDD (major depressive disorder) Current Visit: No Status: Acute (12) GERD (gastroesophageal reflux disease) Current Visit: Yes Status: Chronic Qualifiers: Esophagitis presence: esophagitis presence not specified Qualified Code(s) : K21.9 - Gastro-esophageal reflux disease without esophagitis (13) HTN (hypertension) Current Visit: Yes Status: Chronic Qualifiers: Hypertension type: essential hypertension Qualified Code(s): I10 - Essential (primary) hypertension (14) Nicotine dependence Current Visit: Yes Status: Chronic Qualifiers: Nicotine product type: cigarettes Substance use status: uncomplicated Qualified Code(s): F17.210 - Nicotine dependence, cigarettes, uncomplicated (15) Depressed affect Current Visit: No Status: Suspected (16) Substance induced mood disorder Current Visit: No Status: Suspected - AMA Did Patient Leave Against Medical Advice: No (referred to [facility])
[2018-09-09] MEDS ORDERED: FUROSEMIDE 40 MG TABLET (FP) PO SCH (10:00)
[2018-09-09] MEDS: PRENATAL VITAMINS W/ FOLIC ACID TABLET (FP) PO SCH (10:28)
[2018-09-09] MEDS: amLODIPine BESYLATE 10 MG TABLET (FP) PO SCH (10:29)
[2018-09-09] MEDS: LISINOPRIL 10 MG TABLET (FP) PO SCH (10:30)
[2018-09-09] MEDS: METHYL SALICYLATE/MENTHOL OINT 30 GM TUBE TP SCH (10:31)
[2018-09-09] MEDS: PETROLATUM, WHITE 30 GM TUBE TP SCH (10:33)
[2018-09-09] MEDS: cloNIDine HCL 0.1 MG TABLET PO SCH (12:15)
[2018-09-09 13:15] VITALS: BP 137/93; PULSE 77; TEMP 97.3
== END 2018-09-09 15:09 | disposition other institution (70) | DRG 897 ==
LOC: YASAS 12:14 → Y6N 14:43
PROC: HZ2ZZZZ Detoxification Services for Substance Abuse Treatment (ICD-10-PCS; principal; 2018-09-04)
DX: F11.23 Opioid dependence with withdrawal (principal); F19.282 Other psychoactive substance dependence with psychoactive substance-induced sleep disorder; F33.9 Major depressive disorder, recurrent, unspecified; F10.230 Alcohol dependence with withdrawal, uncomplicated; F17.210 Nicotine dependence, cigarettes, uncomplicated; F19.24 Other psychoactive substance dependence with psychoactive substance-induced mood disorder; I10 Essential (primary) hypertension; R63.8 Other symptoms and signs concerning food and fluid intake; R94.5 Abnormal results of liver function studies; K21.9 Gastro-esophageal reflux disease without esophagitis; E87.6 Hypokalemia
CPT/HCPCS: 36415; 80051; 80053; 85027; 86593; J0735

== ENCOUNTER 2018-09-09 14:54 | Inpatient (IN) | payer OTHER ==
[2018-09-09 15:19] VITALS: BMI 32.9
[2018-09-09] MEDS ORDERED: guaiFENesin/D-METHORPHAN HB 10 ML UNIT-DOSE CUPS PO PRN (15:36)
[2018-09-09] MEDS ORDERED: MAGNESIUM HYDROX 2400MG/30ML ORAL SUSPENSION 30 ML CUP PO PRN (15:36)
[2018-09-09] MEDS ORDERED: P-EPHED 60MG/TRIPROLIDI 2.5MG TABLET PO PRN (15:36)
[2018-09-09] MEDS ORDERED: MAG HYDROX/AL HYDROX/SIMETH 30 ML UNIT-DOSE CUP PO PRN (15:36)
[2018-09-09] MEDS ORDERED: LOPERAMIDE HCL 2 MG CAPSULE PO PRN (15:36)
[2018-09-09] MEDS ORDERED: ACETAMINOPHEN 325 MG TABLET (FP) PO PRN (15:36)
[2018-09-09] MEDS ORDERED: MAGNESIUM CITRATE 300 ML BOTTLE PO PRN (15:36)
[2018-09-09] MEDS ORDERED: IBUPROFEN 400 MG TABLET (FP) PO PRN (15:36)
--- NOTE | 2018-09-09 15:36 | HP ---
[facility] Rehab Assess/Revision - Admission History Admitted to Rehab from: [facility] [place] - Vital signs Vital Signs: Vital Signs Period Temp Pulse Resp BP Sys/Johansen Pulse Ox Last 24 Hr 97.7 F-97.7 F 76-76 18-18 124-124/83-83 - Findings Detox History & Physical reviewed: Yes Concur with findings: Yes Inpatient Rehab Admission - Initial Determination Are CD services needed?: Yes Not in need of hospitalization: Yes - Rehab Admission Criteria Previous failed treatment: Yes Poor recovery environment: Yes Comorbidities: Yes
[2018-09-09] MEDS: ALBUTEROL SO4 8 GM HFA INHALER IH SCH (21:18)
[2018-09-09] MEDS: THIAMINE HCL 100 MG TABLET (FP) PO SCH (21:18)
[2018-09-09] MEDS: cloNIDine HCL 0.1 MG TABLET PO SCH (21:25)
[2018-09-09] MEDS: GABAPENTIN 300 MG CAPSULE (FP) PO SCH (21:26)
[2018-09-09] MEDS: MELATONIN 5 MG TABLETS PO PRN (21:28)
[2018-09-09] MEDS: hydrOXYzine PAMOATE 50 MG CAPSULE (FP) PO PRN (21:29)
[2018-09-09] MEDS: LISINOPRIL 10 MG TABLET (FP) PO SCH (21:30)
[2018-09-09] MEDS: METHYL SALICYLATE/MENTHOL OINT 30 GM TUBE TP PRN (23:14)
[2018-09-09] MEDS ORDERED: PT OWN MED DRAWER 7, Y5N ONE (23:17)
[2018-09-10] MEDS: ALBUTEROL SO4 8 GM HFA INHALER IH SCH ×2 (00:18→00:21)
[2018-09-10] MEDS ORDERED: ALBUTEROL SO4 8 GM HFA INHALER IH PRN (00:18)
[2018-09-10] MEDS: PRENATAL VITAMINS W/ FOLIC ACID TABLET (FP) PO SCH (09:38)
[2018-09-10] MEDS: amLODIPine BESYLATE 10 MG TABLET (FP) PO SCH (09:38)
[2018-09-10] MEDS: cloNIDine HCL 0.1 MG TABLET PO SCH ×2 (09:38→21:31)
[2018-09-10] MEDS: NICOTINE 21 MG/24 HOURS TOPICAL PATCH TD SCH (09:38)
[2018-09-10] MEDS: FUROSEMIDE 40 MG TABLET (FP) PO SCH (09:38)
[2018-09-10] MEDS: LISINOPRIL 10 MG TABLET (FP) PO SCH ×2 (09:39→21:31)
[2018-09-10] MEDS: hydrOXYzine PAMOATE 50 MG CAPSULE (FP) PO PRN ×2 (09:40→21:31)
[2018-09-10] MEDS ORDERED: PANTOPRAZOLE 40 MG TABLET (FP) PO ONE (14:00)
--- NOTE | 2018-09-10 14:32 | PN ---
[facility] Progress Note Note: PT C/O ACID REFLUX AND STATES SHE HS BEEN ON ZANTAC IN THE PST. SHE DECLINES ZANTAC TODAY BUT OPEN TO RX PROTONIX. PT ALSO C/O LEG SWELLING. REVIEW OF PT'S CHART INDICATES SWELLING OF EXTREMITIES ON ADMISSION DAY TO DETOX AND WAS TAKING LASIX 20 MG PO DAILY. PT NOW IN REHAB AND LASIX WAS INCREASED TO 40 MG PO DAILY YESTERDAY. Vital Signs 09/10/18 09/10/18 07:03 09:16 Temperature 97.9 F Pulse Rate 69 87 Respiratory 18 18 Rate Blood Pressure 135/86 135/78 LEGS; BILATERAL FEET EDEMA, LEFT . RIGHT NON PITTING. NAD PLAN:ELEVATE BOTH LEGS WHILE IN BED AMBULATE NEEDED PT REPORTS SHE HAS A PMD DR. DIANA GARCIA AT [facility] AND WILL FOLLOW UP WITH MEDICAL MANAGEMENT AFTER REHAB. PT TO CONTINUE WITH LASIX 40 MG AND TO BE RE-EVALUATE IF NOT EFFECTIVE.
[2018-09-10] MEDS: THIAMINE HCL 100 MG TABLET (FP) PO SCH (21:31)
[2018-09-10] MEDS: GABAPENTIN 300 MG CAPSULE (FP) PO SCH (21:31)
[2018-09-10] MEDS: METHYL SALICYLATE/MENTHOL OINT 30 GM TUBE TP PRN (21:32)
[2018-09-11] MEDS: MENTHOL/PHENOL 1 EACH UD MM PRN (03:33)
[2018-09-11] MEDS: hydrOXYzine PAMOATE 50 MG CAPSULE (FP) PO PRN (06:17)
[2018-09-11] MEDS: FUROSEMIDE 40 MG TABLET (FP) PO SCH (09:37)
[2018-09-11] MEDS: cloNIDine HCL 0.1 MG TABLET PO SCH ×2 (09:37→21:10)
[2018-09-11] MEDS: NICOTINE 21 MG/24 HOURS TOPICAL PATCH TD SCH (09:37)
[2018-09-11] MEDS: PRENATAL VITAMINS W/ FOLIC ACID TABLET (FP) PO SCH (09:37)
[2018-09-11] MEDS: LISINOPRIL 10 MG TABLET (FP) PO SCH ×2 (09:37→21:10)
[2018-09-11] MEDS: PANTOPRAZOLE 40 MG TABLET (FP) PO SCH (09:37)
[2018-09-11] MEDS: amLODIPine BESYLATE 10 MG TABLET (FP) PO SCH (09:38)
--- NOTE | 2018-09-11 10:43 | HP ---
Psychiatrist Admission - Data Date of interview: 09/11/18 Admission source: Transfer from [address] [place] [address]. Identifying data: First admission to [facility] for this 63 y/o AA female who completed detoxification treatment (alcohol, cocaine, heroin) at [address] [place] [address] prior to this transfer to [facility] for rehabilitation care. Patient is single, a mother of two, domiciled, unemployed and supported on SSI/SSD benefits. Medical History: Remarkable for hypertension, bilateral leg edema and a history of partial hysterectomy. Also noted history of surgery for excision of bunion ( left foot). Psychiatric History: First psychiatric breakdown occurred in 1998 (suicidal ideation, hopelessness, depressed mood, poor functioning). Patient got admitted to [facility] in [facility], [place]. Diagnosed with MDD. Multiple psychiatric hospitalizations followed but the patient is unable to recall names of institutions. She, however, indicates that she has not been re-hospitalized for past 10-12 years. Ms Li is prescribed a regimen of paroxetine 40 mg/ day (reduced now to 20 mg in view of non-adherence) + gabapentin 300 mg/hs + vistaril 25 mg/hs. No contact with psychiatrists for years (primary care physician provides scripts for psychotropic medications). Patient denies history of suicide attempts. Physical/Sexual Abuse/Trauma History: Patient denies. Additional Comment: Substance abuse profile is discussed in this interview. Details in current [facility] report of 09/07/18 : Smoking history: Current every day smoker. Have you smoked in the past 12 months: Yes. Aproximately how many cigarettes per day: 10. Cigars Per Day: 0. Hx Chewing Tobacco Use: No. Initiated information on smoking cessation: Yes. 'Breaking Loose' booklet given : 09/04/18. - Substance & Tx. History. Hx Alcohol Use: Yes. Hx Substance Use : Yes. Substance Use Type: Alcohol, Cocaine, Heroin. - Substances Abused. Heroin. Route: Inhalation. Frequency: Daily. Amount used: 3-4 bags. Age of first use: 17. Date of Last Use: 09/03/18. Alcohol. Route: Oral. Frequency: Daily. Amount used: 6-8 16oz cans of beer. Age of first use: 17. Date of Last Use: 09/04/18. Crack. Route: Smoking. Frequency: 1-2 times per week. Amount used: 1-2 bags. Age of first use: 35. Date of Last Use: . Urine Drug Screen Results: OPI-Opiates, FEN-Fentanyl. Noted. Vital Signs: Vital Signs - 24 hr 09/10/18 09/11/18 09/11/18 21:15 00:30 03:30 Temperature 97.9 F Pulse Rate 69 Respiratory 18 18 18 Rate Blood Pressure 151/86 09/11/18 09/11/18 06:43 09:09 Temperature 98.1 F Pulse Rate 72 80 Respiratory 18 19 Rate Blood Pressure 143/93 151/91 Allergies/Adverse Reactions: Allergies Allergy/AdvReac Type Severity Reaction Status Date / Time No Known Allergies Allergy Verified 09/04/18 13:24 - Substance Abuse/Tx History Hx Alcohol Use: Yes (since age 17) Hx Substance Use: Yes (alcohol, cocaine, heroin, nicotine) Substance Use Type: Alcohol (stopped consuming liquors years ago ; now uses 8x16 oz of beer daily), Cocaine (states that crack is not her drug of choice ; uses sporadically since age 17), Heroin (has been snorting heroin since age 17 as well. 3-5 bags daily) Hx Substance Use Treatment: Yes (previously known to [facility]) Mental Status Exam - Mental Status Exam Alert and Oriented to: Time, Place, Person Cognitive Function: Good Patient Appearance: Well Groomed (overweight) Mood: Apprehensive, Hopeful Affect: Appropriate, Normal Range Patient Behavior: Appropriate, Cooperative Speech Pattern: Clear, Appropriate Voice Loudness: Normal Thought Process: Intact, Goal Oriented Thought Disorder: Not Present Hallucinations: Denies Suicidal Ideation: Denies Homicidal Ideation: Denies Insight/Judgement: Fair Sleep: Poorly, Difficulty falling asleep (wants low dose of vistaril at bedtime) Appetite: Good Muscle strength/Tone: Normal Gait/Station: Other (walks with a cane) Psychiatric Findings - Problem List ([place] 1, 2,3) (1) Alcohol dependence Current Visit: Yes Status: Chronic (2) Opioid dependence Current Visit: Yes Status: Chronic (3) Nicotine dependence Current Visit: No Status: Chronic Qualifiers: Nicotine product type: cigarettes Substance use status: uncomplicated Qualified Code(s): F17.210 - Nicotine dependence, cigarettes, uncomplicated (4) MDD (major depressive disorder) Current Visit: Yes Status: Chronic (5) Substance induced mood disorder Current Visit: Yes Status: Chronic (6) Insomnia Current Visit: Yes Status: Chronic (7) Non-compliance Current Visit: Yes Status: Chronic - Initial Treatment Plan Initial Treatment Plan: Psychoeducation. Sleep hygiene. Motivational rounds to promote sobriety. Patient is made aware of interventions that are now available for ETOH/opiod relapse prevention (methadone maintenance, suboxone, acamprosate , naltrexone, AA/NA fellowships, psychotherapy). Supportive/group therapy sessions. Medications groups. Resume : paxil 20 mg po daily + gabapentin 300 mg po hs + vistaril 25 mg po hs. Side effects/benefits of each drug are discussed with the patient. Ms Li is in agreement with this plan of care. Observation.
--- NOTE | 2018-09-11 10:46 | PN ---
[facility] Progress Note Note: PATIENT SEEN FOR C/O BILATERAL LEG EDEMA. PATIENT STATES SHE HAS HAD SYMPTOMS OF EDEMA IN PAST BUT SYMPTOMS HAVE WORSENED. TREATED FOR EDEMA WHILE AT DETOX WITH LASIX AND SAME MEDICATION INCREASED TO 40MG DAILY FROM 20MG. PATIENT DENIES CALF PAIN AND REDNESS. Vital Signs Temperature 98.1 F 09/11/18 06:43 Pulse Rate 80 09/11/18 09:09 Respiratory Rate 19 09/11/18 09:09 Blood Pressure 151/91 09/11/18 09:09 O2 Sat by Pulse Oximetry (%) PE; ALERT AND ORIENTED X 3 SKIN WARM AND DRY CAR S1S2 RESP CTA BL EXT + BLE EDEMA, LEFT SLIGHT MORE EDEMATOUS THAN RIGHT. NO CALF REDNESS/WARMTH. AMB AD FILIBERTO A/P: EDEMA WILL CONTINUE LASIX D/C NORVASC, PATIENT REFUSED LAST 2 DOSES SHE STATES MEDICATION CAUSED HER FEET TO BE SWOLLEN IN PAST. [facility] STOCKINGS CONTINUE TO MONITOR CLINICALLY
[2018-09-11] MEDS ORDERED: PARoxetine HCL 10 MG TABLET (FP) ONE (11:47)
[2018-09-11] MEDS: PARoxetine HCL 20 MG TABLET (FP) PO SCH (12:00)
[2018-09-11] MEDS: THIAMINE HCL 100 MG TABLET (FP) PO SCH (21:10)
[2018-09-11] MEDS: GABAPENTIN 300 MG CAPSULE (FP) PO SCH (21:10)
[2018-09-11] MEDS ORDERED: PT OWN MED DRAWER 7, Y5N ONE ×2 (21:11→23:04)
[2018-09-11] MEDS: MELATONIN 5 MG TABLETS PO PRN (21:16)
[2018-09-11] MEDS ORDERED: PARoxetine HCL 20 MG TABLET (FP) PO SCH (22:00)
[2018-09-11] MEDS ORDERED: hydrOXYzine PAMOATE 25 MG CAPSULE (FP) PO SCH (22:00)
[2018-09-12] MEDS: MENTHOL/PHENOL 1 EACH UD MM PRN (02:53)
[2018-09-12] MEDS ORDERED: cloNIDine HCL 0.1 MG TABLET PO ONE ×2 (06:38→17:45)
--- NOTE | 2018-09-12 06:45 | PN ---
[facility] Progress Note Note: Patient's blood pressure this morning is B/P 160/103. Patient is asymptomatic Vital Signs Temperature 98.3 F 09/12/18 06:39 Pulse Rate 65 09/12/18 06:39 Respiratory Rate 18 09/12/18 06:39 Blood Pressure 160/103 H 09/12/18 06:39 O2 Sat by Pulse Oximetry (%) Action: Clonidine 0.1mg 1 tablet oral ordered
[2018-09-12] MEDS ORDERED: PARoxetine HCL 10 MG TABLET (FP) ONE (08:36)
[2018-09-12] MEDS: FUROSEMIDE 40 MG TABLET (FP) PO SCH (09:43)
[2018-09-12] MEDS: cloNIDine HCL 0.1 MG TABLET PO SCH ×2 (09:43→21:30)
[2018-09-12] MEDS: NICOTINE 21 MG/24 HOURS TOPICAL PATCH TD SCH (09:43)
[2018-09-12] MEDS: PRENATAL VITAMINS W/ FOLIC ACID TABLET (FP) PO SCH (09:44)
[2018-09-12] MEDS: LISINOPRIL 10 MG TABLET (FP) PO SCH ×2 (09:44→21:30)
[2018-09-12] MEDS: PANTOPRAZOLE 40 MG TABLET (FP) PO SCH (09:44)
[2018-09-12] MEDS: PARoxetine HCL 20 MG TABLET (FP) PO SCH (09:44)
[2018-09-12] MEDS ORDERED: PARoxetine HCL 20 MG TABLET (FP) PO SCH (10:00)
--- NOTE | 2018-09-12 11:10 | PN ---
[facility] Progress Note Note: Patient complains about Paxil making her drowsy and wants it at bedtime in lieu of morning. She also requests to have vistaril order changed to Q 4hrs prn in lieu of HS
[2018-09-12] MEDS: hydrOXYzine PAMOATE 25 MG CAPSULE (FP) PO PRN ×2 (12:05→21:29)
[2018-09-12] MEDS: DOCUSATE SODIUM 100 MG CAPSULE (FP) PO SCH ×2 (14:20→21:30)
[2018-09-12] MEDS: NICOTINE POLACRILEX 4 MG GUM BUC PRN (15:10)
--- NOTE | 2018-09-12 19:36 | PN ---
[facility] Progress Note Note: Patient c/o uncontrolled HTN. States takes 0.3 mg Clonidine at home. This dosage has not been able to be conformed. Vital Signs 09/12/18 17:46 Pulse Rate 73 Blood Pressure 159/102 H Given additional dose CloNidine for elevated blood pressure. Encouraged to f/u with PCP upon discharge.
[2018-09-12] MEDS: THIAMINE HCL 100 MG TABLET (FP) PO SCH (21:30)
[2018-09-12] MEDS: GABAPENTIN 300 MG CAPSULE (FP) PO SCH (21:30)
[2018-09-12] MEDS: MELATONIN 5 MG TABLETS PO PRN (21:31)
[2018-09-12] MEDS: METHYL SALICYLATE/MENTHOL OINT 30 GM TUBE TP PRN (21:36)
[2018-09-13] MEDS: hydrOXYzine PAMOATE 25 MG CAPSULE (FP) PO PRN ×3 (06:53→21:23)
[2018-09-13] MEDS: cloNIDine HCL 0.1 MG TABLET PO SCH ×3 (06:53→21:25)
--- NOTE | 2018-09-13 06:57 | PN ---
[facility] Progress Note Note: Patien's blood pressure is B/P 167/102. Patient is asymptomatic Vital Signs Temperature 98.3 F 09/13/18 06:52 Pulse Rate 73 09/13/18 06:52 Respiratory Rate 18 09/13/18 06:52 Blood Pressure 167/102 H 09/13/18 06:52 O2 Sat by Pulse Oximetry (%) Action: Clonidine 0.1mg 1 tablet oral ordered
[2018-09-13] MEDS: PANTOPRAZOLE 40 MG TABLET (FP) PO SCH (09:57)
[2018-09-13] MEDS: FUROSEMIDE 40 MG TABLET (FP) PO SCH (09:57)
[2018-09-13] MEDS: LISINOPRIL 10 MG TABLET (FP) PO SCH ×2 (09:57→21:23)
[2018-09-13] MEDS: DOCUSATE SODIUM 100 MG CAPSULE (FP) PO SCH ×2 (09:57→21:23)
[2018-09-13] MEDS: PRENATAL VITAMINS W/ FOLIC ACID TABLET (FP) PO SCH (09:57)
[2018-09-13] MEDS: NICOTINE POLACRILEX 4 MG GUM BUC PRN (09:58)
[2018-09-13] MEDS: NICOTINE 21 MG/24 HOURS TOPICAL PATCH TD SCH (09:59)
--- NOTE | 2018-09-13 11:16 | PN ---
[facility] Progress Note (SOAP) Subjective: My egs are swollen and my bp is elevated Objective: 09/13/18 11:15 Vital Signs Temperature 98.3 F 09/13/18 06:52 Pulse Rate 81 09/13/18 09:34 Respiratory Rate 18 09/13/18 07:46 Blood Pressure 150/88 09/13/18 09:34 O2 Sat by Pulse Oximetry (%) pt aox3 in nad ambualting w/o sob . lungs clear to a/p cor rrr, w/o m ext. héctor pedal edema +1 neuro - intact impt - htn with pedal edema, pt unable to tolerate norvasc because of edema ; therefore the pt will haveclonidine increased to 0.2 mg bid . Pt states she was previously on clonidine 0.3 mg bid and bp was controlled . bp on admission to rehab 124/83. Plan - clonidine 0.2mg bid leg elevation low salt diet 09/13/18 11:16 09/13/18 11:21
[2018-09-13] MEDS: THIAMINE HCL 100 MG TABLET (FP) PO SCH (21:23)
[2018-09-13] MEDS: MELATONIN 5 MG TABLETS PO PRN (21:23)
[2018-09-13] MEDS: GABAPENTIN 300 MG CAPSULE (FP) PO SCH (21:24)
[2018-09-13] MEDS ORDERED: PARoxetine HCL 10 MG TABLET (FP) ONE (21:25)
[2018-09-13] MEDS: PARoxetine HCL 20 MG TABLET (FP) PO SCH (21:26)
[2018-09-14] MEDS: hydrOXYzine PAMOATE 25 MG CAPSULE (FP) PO PRN ×3 (06:56→20:15)
[2018-09-14] MEDS: PANTOPRAZOLE 40 MG TABLET (FP) PO SCH (09:40)
[2018-09-14] MEDS: LISINOPRIL 10 MG TABLET (FP) PO SCH ×2 (09:40→22:31)
[2018-09-14] MEDS: DOCUSATE SODIUM 100 MG CAPSULE (FP) PO SCH ×2 (09:40→22:31)
[2018-09-14] MEDS: PRENATAL VITAMINS W/ FOLIC ACID TABLET (FP) PO SCH (09:40)
[2018-09-14] MEDS: cloNIDine HCL 0.1 MG TABLET PO SCH ×2 (09:40→22:34)
[2018-09-14] MEDS: FUROSEMIDE 40 MG TABLET (FP) PO SCH (09:40)
[2018-09-14] MEDS: NICOTINE 21 MG/24 HOURS TOPICAL PATCH TD SCH (09:41)
[2018-09-14] MEDS ORDERED: PARoxetine HCL 10 MG TABLET (FP) ONE (19:29)
[2018-09-14] MEDS: THIAMINE HCL 100 MG TABLET (FP) PO SCH (22:31)
[2018-09-14] MEDS: GABAPENTIN 300 MG CAPSULE (FP) PO SCH (22:31)
[2018-09-14] MEDS: PARoxetine HCL 20 MG TABLET (FP) PO SCH (22:32)
[2018-09-14] MEDS: MELATONIN 5 MG TABLETS PO PRN (22:33)
[2018-09-15] MEDS: hydrOXYzine PAMOATE 25 MG CAPSULE (FP) PO PRN (08:38)
[2018-09-15] MEDS: cloNIDine HCL 0.1 MG TABLET PO SCH ×2 (10:06→22:35)
[2018-09-15] MEDS: PANTOPRAZOLE 40 MG TABLET (FP) PO SCH (10:07)
[2018-09-15] MEDS: PRENATAL VITAMINS W/ FOLIC ACID TABLET (FP) PO SCH (10:07)
[2018-09-15] MEDS: LISINOPRIL 10 MG TABLET (FP) PO SCH ×2 (10:07→22:35)
[2018-09-15] MEDS: DOCUSATE SODIUM 100 MG CAPSULE (FP) PO SCH ×2 (10:07→22:35)
[2018-09-15] MEDS: NICOTINE 21 MG/24 HOURS TOPICAL PATCH TD SCH (10:08)
[2018-09-15] MEDS: FUROSEMIDE 40 MG TABLET (FP) PO SCH (10:08)
[2018-09-15] MEDS ORDERED: PARoxetine HCL 10 MG TABLET (FP) ONE (19:14)
[2018-09-15] MEDS: THIAMINE HCL 100 MG TABLET (FP) PO SCH (22:35)
[2018-09-15] MEDS: GABAPENTIN 300 MG CAPSULE (FP) PO SCH (22:35)
[2018-09-15] MEDS: MELATONIN 5 MG TABLETS PO PRN (22:35)
[2018-09-15] MEDS: PARoxetine HCL 20 MG TABLET (FP) PO SCH (22:36)
[2018-09-16] MEDS: hydrOXYzine PAMOATE 25 MG CAPSULE (FP) PO PRN ×3 (07:50→21:07)
[2018-09-16] MEDS ORDERED: cloNIDine HCL 0.1 MG TABLET PO SCH ×2 (08:35→22:00)
--- NOTE | 2018-09-16 09:33 | PN ---
S Progress Note Note: NOTIFIED BY RN PATIENT WAS ORDERED CLONIDINE 0.3MG BID. PATIENT'S BLOOD PRESSURE 141/89 BEFORE MEDICATION ADMINISTRATION. PATIENT TO BE GIVEN LISINOPRIL /LASIX SCHEDULED AT 10AM. PATIENT ASYMPTOMATIC. PATIENT'S VITAL SIGNS TREND SHOWS ELEVATION OF BP OCCURS MORE IN THE EVENING AND GOING INTO THE ASSISTANT PASSENGER LOCOMOTIVE ENGINEER HOURS. WILL CHANGE CLONIDINE TO 0.3MG HS, CONTINUE TO MONITOR CLINICALLY. Vital Signs Temperature 97.9 F 09/16/18 07:10 Pulse Rate 65 09/16/18 07:10 Respiratory Rate 18 09/16/18 07:10 Blood Pressure 163/100 09/16/18 07:10 O2 Sat by Pulse Oximetry (%) Vital Signs (72 hours) 09/13/18 09/13/18 09/14/18 09:34 18:05 00:30 Temperature Pulse Rate 81 76 Respiratory 18 Rate Blood Pressure 150/88 169/107 H 09/14/18 09/14/18 09/14/18 07:28 09:00 21:27 Temperature 97.9 F Pulse Rate 62 78 69 Respiratory 18 18 18 Rate Blood Pressure 167/98 150/90 159/97 09/15/18 09/15/18 09/15/18 03:30 07:39 09:00 Temperature 97.7 F Pulse Rate 67 71 Respiratory 18 18 18 Rate Blood Pressure 157/97 153/95 09/16/18 09/16/18 09/16/18 03:30 06:57 07:10 Temperature 97.9 F 97.9 F Pulse Rate 75 65 Respiratory 18 18 18 Rate Blood Pressure 179/114 H 163/100
[2018-09-16] MEDS: FUROSEMIDE 40 MG TABLET (FP) PO SCH (09:51)
[2018-09-16] MEDS: LISINOPRIL 10 MG TABLET (FP) PO SCH ×2 (09:51→21:05)
[2018-09-16] MEDS: PRENATAL VITAMINS W/ FOLIC ACID TABLET (FP) PO SCH (09:51)
[2018-09-16] MEDS: NICOTINE 21 MG/24 HOURS TOPICAL PATCH TD SCH (09:52)
[2018-09-16] MEDS: DOCUSATE SODIUM 100 MG CAPSULE (FP) PO SCH ×2 (09:52→21:06)
[2018-09-16] MEDS: PANTOPRAZOLE 40 MG TABLET (FP) PO SCH (09:52)
[2018-09-16] MEDS: COLLOIDAL OATMEAL 1 BAR EACH TP PRN (09:55)
[2018-09-16] MEDS: NICOTINE POLACRILEX 4 MG GUM BUC PRN (15:16)
[2018-09-16] MEDS ORDERED: PARoxetine HCL 10 MG TABLET (FP) ONE (20:11)
[2018-09-16] MEDS: GABAPENTIN 300 MG CAPSULE (FP) PO SCH (21:05)
[2018-09-16] MEDS: THIAMINE HCL 100 MG TABLET (FP) PO SCH (21:05)
[2018-09-16] MEDS: MELATONIN 5 MG TABLETS PO PRN (21:06)
[2018-09-16] MEDS: PARoxetine HCL 20 MG TABLET (FP) PO SCH (21:07)
[2018-09-17] MEDS: hydrOXYzine PAMOATE 25 MG CAPSULE (FP) PO PRN ×2 (06:21→16:06)
[2018-09-17] MEDS: cloNIDine HCL 0.1 MG TABLET PO SCH ×3 (07:16→22:02)
[2018-09-17] MEDS: NICOTINE 21 MG/24 HOURS TOPICAL PATCH TD SCH (09:47)
[2018-09-17] MEDS: PRENATAL VITAMINS W/ FOLIC ACID TABLET (FP) PO SCH (09:47)
[2018-09-17] MEDS: DOCUSATE SODIUM 100 MG CAPSULE (FP) PO SCH ×2 (09:47→22:02)
[2018-09-17] MEDS: FUROSEMIDE 40 MG TABLET (FP) PO SCH (09:48)
[2018-09-17] MEDS: LISINOPRIL 10 MG TABLET (FP) PO SCH (09:48)
[2018-09-17] MEDS: PANTOPRAZOLE 40 MG TABLET (FP) PO SCH (09:48)
[2018-09-17] MEDS: NICOTINE POLACRILEX 4 MG GUM BUC PRN (09:49)
--- NOTE | 2018-09-17 11:55 | PN ---
S Progress Note Note: Pt requesting dry skin lotion and mirallax for constipation. Lac hydrin ordered and pt has multiple prn orders for constipation- pt to be given those and if still with Sx- can order miralax
[2018-09-17] MEDS: AMMONIUM LACTATE 12% LOTION 225 GM BOTTLE TP PRN (16:05)
[2018-09-17] MEDS ORDERED: POLYETHYLENE GLYCOL 3350 119 GM BTL PO ONE (16:15)
[2018-09-17] MEDS ORDERED: LISINOPRIL 20 MG TABLET (FP) PO ONE (16:25)
[2018-09-17] MEDS ORDERED: PARoxetine HCL 10 MG TABLET (FP) ONE (19:59)
[2018-09-17] MEDS ORDERED: PT OWN MED DRAWER 7, Y5N ONE (21:55)
[2018-09-17] MEDS: THIAMINE HCL 100 MG TABLET (FP) PO SCH (22:02)
[2018-09-17] MEDS: GABAPENTIN 300 MG CAPSULE (FP) PO SCH (22:02)
[2018-09-17] MEDS: MELATONIN 5 MG TABLETS PO PRN (22:03)
[2018-09-17] MEDS: PARoxetine HCL 20 MG TABLET (FP) PO SCH (22:04)
[2018-09-18] MEDS: hydrOXYzine PAMOATE 25 MG CAPSULE (FP) PO PRN (06:21)
[2018-09-18] MEDS: LISINOPRIL 10 MG TABLET (FP) PO SCH ×2 (06:21→18:13)
[2018-09-18] MEDS: FUROSEMIDE 40 MG TABLET (FP) PO SCH (09:44)
[2018-09-18] MEDS: PANTOPRAZOLE 40 MG TABLET (FP) PO SCH (09:44)
[2018-09-18] MEDS: cloNIDine HCL 0.1 MG TABLET PO SCH ×2 (09:45→21:50)
[2018-09-18] MEDS: PRENATAL VITAMINS W/ FOLIC ACID TABLET (FP) PO SCH (09:45)
[2018-09-18] MEDS: DOCUSATE SODIUM 100 MG CAPSULE (FP) PO SCH ×2 (09:45→21:49)
[2018-09-18] MEDS: NICOTINE 21 MG/24 HOURS TOPICAL PATCH TD SCH (09:46)
--- NOTE | 2018-09-18 16:15 | PN ---
[facility] Progress Note Note: C/o continued, chronic constipation and requesting miralax daily. Abd S/NT/BS+. Denies nausea or vomiting. Plan: Miralax 17 gm HS daily. Continue colace, as ordered. Encourage increased water intake.
[2018-09-18] MEDS: NICOTINE POLACRILEX 4 MG GUM BUC PRN (18:14)
[2018-09-18] MEDS ORDERED: PARoxetine HCL 10 MG TABLET (FP) ONE (19:25)
[2018-09-18] MEDS: GABAPENTIN 300 MG CAPSULE (FP) PO SCH (21:49)
[2018-09-18] MEDS: THIAMINE HCL 100 MG TABLET (FP) PO SCH (21:49)
[2018-09-18] MEDS: PARoxetine HCL 20 MG TABLET (FP) PO SCH (21:50)
[2018-09-18] MEDS: POLYETHYLENE GLYCOL 3350 119 GM BTL PO SCH (21:52)
[2018-09-18] MEDS: MELATONIN 5 MG TABLETS PO PRN (21:53)
[2018-09-18] MEDS ORDERED: PT OWN MED DRAWER 7, Y5N ONE (21:53)
[2018-09-19] MEDS: hydrOXYzine PAMOATE 25 MG CAPSULE (FP) PO PRN ×2 (06:27→16:25)
[2018-09-19] MEDS: LISINOPRIL 10 MG TABLET (FP) PO SCH ×2 (06:27→18:07)
[2018-09-19] MEDS: AMMONIUM LACTATE 12% LOTION 225 GM BOTTLE TP PRN (09:50)
[2018-09-19] MEDS: cloNIDine HCL 0.1 MG TABLET PO SCH ×2 (09:51→22:20)
[2018-09-19] MEDS: DOCUSATE SODIUM 100 MG CAPSULE (FP) PO SCH ×2 (09:51→22:22)
[2018-09-19] MEDS: PRENATAL VITAMINS W/ FOLIC ACID TABLET (FP) PO SCH (09:52)
[2018-09-19] MEDS: FUROSEMIDE 40 MG TABLET (FP) PO SCH (09:52)
[2018-09-19] MEDS: NICOTINE 21 MG/24 HOURS TOPICAL PATCH TD SCH (09:53)
[2018-09-19] MEDS: POLYETHYLENE GLYCOL 3350 119 GM BTL PO SCH (09:53)
[2018-09-19] MEDS: PANTOPRAZOLE 40 MG TABLET (FP) PO SCH (09:54)
[2018-09-19] MEDS ORDERED: SODIUM PHOSPHATE/NA BIPHOS 133 ML ENEMA PR ONE (14:15)
--- NOTE | 2018-09-19 15:09 | PN ---
[facility] Progress Note Note: NOTIFIED BY RN PATIENT GIVEN COLACE AND MIRALAX FOR CONSTIPATION WITH NO SIGNIFICANT RELIEF. LAST DOSE OF COLACE THIS AM AND MIRALAX YESTERDAY MORNING. WILL ORDER ONE DOSE OF FLEET ENEMA IN X 1. ORAL FLUIDS ENCOURAGE BY STAFF. MONITOR. Vital Signs Temperature 98.0 F 09/19/18 06:57 Pulse Rate 69 09/19/18 10:00 Respiratory Rate 18 09/19/18 06:57 Blood Pressure 149/89 09/19/18 10:00 O2 Sat by Pulse Oximetry (%)
[2018-09-19] MEDS ORDERED: PARoxetine HCL 10 MG TABLET (FP) ONE (19:10)
[2018-09-19] MEDS: THIAMINE HCL 100 MG TABLET (FP) PO SCH (22:19)
[2018-09-19] MEDS: GABAPENTIN 300 MG CAPSULE (FP) PO SCH (22:20)
[2018-09-19] MEDS: MELATONIN 5 MG TABLETS PO PRN (22:21)
[2018-09-19] MEDS: PARoxetine HCL 20 MG TABLET (FP) PO SCH (22:22)
[2018-09-20] MEDS: LISINOPRIL 10 MG TABLET (FP) PO SCH ×2 (06:17→17:44)
[2018-09-20] MEDS ORDERED: PT OWN MED DRAWER 7, Y5N ONE ×4 (09:16→18:53)
[2018-09-20] MEDS ORDERED: BISACODYL 5 MG TABLET.DR (FP) PO ONE (09:24)
[2018-09-20] MEDS ORDERED: BISACODYL 5 MG TABLET.DR (FP) PO PRN (09:30)
--- NOTE | 2018-09-20 09:31 | PN ---
S Progress Note Note: Pt states still not able to have a BM. Pt is on colace, MOM, Citroma, miralax- states has not had a BM for the last 5 days. REc'd a fleets enema yesterday with no success. Says she uses prune juice and herbs at home to have a BM. O: Vital Signs - 24 hr 09/19/18 09/19/18 09/19/18 10:00 18:00 21:10 Temperature Pulse Rate 69 73 69 Respiratory Rate Blood Pressure 149/89 130/85 156/103 H 09/19/18 09/20/18 09/20/18 23:29 00:30 03:30 Temperature Pulse Rate 72 Respiratory 18 18 Rate Blood Pressure 103/67 09/20/18 06:55 Temperature 97.8 F Pulse Rate 69 Respiratory 18 Rate Blood Pressure 158/111 H a/p: constipation: will give dulcolax po
[2018-09-20] MEDS: cloNIDine HCL 0.1 MG TABLET PO SCH ×2 (09:53→22:29)
[2018-09-20] MEDS: FUROSEMIDE 40 MG TABLET (FP) PO SCH (09:54)
[2018-09-20] MEDS: DOCUSATE SODIUM 100 MG CAPSULE (FP) PO SCH ×2 (09:54→22:29)
[2018-09-20] MEDS: PANTOPRAZOLE 40 MG TABLET (FP) PO SCH (09:54)
[2018-09-20] MEDS: PRENATAL VITAMINS W/ FOLIC ACID TABLET (FP) PO SCH (09:54)
[2018-09-20] MEDS: hydrOXYzine PAMOATE 25 MG CAPSULE (FP) PO PRN ×2 (09:54→15:13)
[2018-09-20] MEDS: NICOTINE 21 MG/24 HOURS TOPICAL PATCH TD SCH (09:55)
[2018-09-20] MEDS: POLYETHYLENE GLYCOL 3350 119 GM BTL PO SCH (09:55)
[2018-09-20] MEDS: NICOTINE POLACRILEX 4 MG GUM BUC PRN (09:56)
[2018-09-20] MEDS: COLLOIDAL OATMEAL 1 BAR EACH TP PRN (18:24)
[2018-09-20] MEDS: MELATONIN 5 MG TABLETS PO PRN (22:29)
[2018-09-20] MEDS: GABAPENTIN 300 MG CAPSULE (FP) PO SCH (22:29)
[2018-09-20] MEDS: PARoxetine HCL 20 MG TABLET (FP) PO SCH (22:29)
[2018-09-20] MEDS: THIAMINE HCL 100 MG TABLET (FP) PO SCH (22:31)
[2018-09-21] MEDS: LISINOPRIL 10 MG TABLET (FP) PO SCH ×2 (06:12→17:48)
[2018-09-21] MEDS: NICOTINE POLACRILEX 4 MG GUM BUC PRN (06:14)
[2018-09-21] MEDS: DOCUSATE SODIUM 100 MG CAPSULE (FP) PO SCH ×2 (09:25→22:37)
[2018-09-21] MEDS: FUROSEMIDE 40 MG TABLET (FP) PO SCH (09:25)
[2018-09-21] MEDS: PRENATAL VITAMINS W/ FOLIC ACID TABLET (FP) PO SCH (09:25)
[2018-09-21] MEDS: PANTOPRAZOLE 40 MG TABLET (FP) PO SCH (09:25)
[2018-09-21] MEDS: hydrOXYzine PAMOATE 25 MG CAPSULE (FP) PO PRN (09:25)
[2018-09-21] MEDS: cloNIDine HCL 0.1 MG TABLET PO SCH ×2 (09:25→22:38)
[2018-09-21] MEDS: NICOTINE 21 MG/24 HOURS TOPICAL PATCH TD SCH (09:27)
[2018-09-21] MEDS: POLYETHYLENE GLYCOL 3350 119 GM BTL PO SCH (09:27)
[2018-09-21] MEDS: PARoxetine HCL 20 MG TABLET (FP) PO SCH (22:37)
[2018-09-21] MEDS: GABAPENTIN 300 MG CAPSULE (FP) PO SCH (22:37)
[2018-09-21] MEDS: MELATONIN 5 MG TABLETS PO PRN (22:38)
[2018-09-21] MEDS ORDERED: PT OWN MED DRAWER 7, Y5N ONE ×2 (22:40→23:32)
[2018-09-21] MEDS: THIAMINE HCL 100 MG TABLET (FP) PO SCH (22:40)
[2018-09-21] MEDS: AMMONIUM LACTATE 12% LOTION 225 GM BOTTLE TP PRN (23:31)
[2018-09-22] MEDS: LISINOPRIL 10 MG TABLET (FP) PO SCH ×2 (06:42→17:56)
[2018-09-22] MEDS: PANTOPRAZOLE 40 MG TABLET (FP) PO SCH (09:45)
[2018-09-22] MEDS: DOCUSATE SODIUM 100 MG CAPSULE (FP) PO SCH ×2 (09:45→22:23)
[2018-09-22] MEDS: NICOTINE POLACRILEX 4 MG GUM BUC PRN (09:45)
[2018-09-22] MEDS: FUROSEMIDE 40 MG TABLET (FP) PO SCH (09:45)
[2018-09-22] MEDS: NICOTINE 21 MG/24 HOURS TOPICAL PATCH TD SCH (09:46)
[2018-09-22] MEDS: cloNIDine HCL 0.1 MG TABLET PO SCH ×2 (09:46→22:23)
[2018-09-22] MEDS: POLYETHYLENE GLYCOL 3350 119 GM BTL PO SCH (09:47)
[2018-09-22] MEDS: PRENATAL VITAMINS W/ FOLIC ACID TABLET (FP) PO SCH (09:47)
[2018-09-22] MEDS: hydrOXYzine PAMOATE 25 MG CAPSULE (FP) PO PRN ×2 (13:54→22:23)
[2018-09-22] MEDS: PARoxetine HCL 20 MG TABLET (FP) PO SCH (22:23)
[2018-09-22] MEDS: GABAPENTIN 300 MG CAPSULE (FP) PO SCH (22:23)
[2018-09-22] MEDS: MELATONIN 5 MG TABLETS PO PRN (22:23)
[2018-09-22] MEDS: THIAMINE HCL 100 MG TABLET (FP) PO SCH (22:25)
[2018-09-23] MEDS: hydrOXYzine PAMOATE 25 MG CAPSULE (FP) PO PRN (06:28)
[2018-09-23] MEDS: LISINOPRIL 10 MG TABLET (FP) PO SCH (06:28)
[2018-09-23 07:03] VITALS: TEMP 97.8
[2018-09-23] MEDS ORDERED: cloNIDine HCL 0.1 MG TABLET PO ONE ×2 (08:39→09:02)
--- NOTE | 2018-09-23 09:02 | PN ---
[facility] Progress Note Note: PT IS SCHEDULED FOR DISCHARGE TODAY. NIGHT AGRICULTURAL EQUIPMENT TEST ENGINEER [place]O ENDORSED TO REPORT ELEVATED BP EARLIER TODAY. PT SEEN IN BREAKFAST ROOM AND REPORTS SHE JUMPED OUT OF BED A LITTLE EARLIER AND WAS ANXIOUS. DENIES ANY DIZZINESS, HEADACHE OR CHEST PAIN. SPOKE WITH PT'S PHARMACIST AT [facility] WHO CONFIRMED PT HAS BEEN ON CLONIDINE O.3 MG PO BID IN ADDITION TO LISINOPRIL 20 MG PO DAILY AND NORVASC 10 MG PO DAILY. PT HAS A PMD, ANTONETTE RASMUSSEN AT [phone]. PT STATES SHE WILL FOLLOW UP WITH PMD SOON DISCHARGED. Vital Signs 09/23/18 09/23/18 07:03 08:02 Temperature 97.8 F 97.8 F Pulse Rate 57 L 59 L Respiratory 18 18 Rate Blood Pressure 182/118 H 200/115 H Vital Signs (72 hours) 09/21/18 09/21/18 09/21/18 03:30 07:15 09:20 Temperature 97.9 F Pulse Rate 69 77 Respiratory 18 18 Rate Blood Pressure 149/96 121/75 09/21/18 09/21/18 09/22/18 18:00 20:15 03:30 Temperature Pulse Rate 73 73 Respiratory 18 Rate Blood Pressure 120/75 133/88 09/22/18 09/22/18 09/22/18 07:21 09:31 17:58 Temperature 98.0 F 98.2 F Pulse Rate 66 114 H 72 Respiratory 18 18 Rate Blood Pressure 164/115 H 131/91 146/88 09/22/18 09/23/18 09/23/18 22:13 00:30 07:03 Temperature 97.4 F L 97.8 F Pulse Rate 78 57 L Respiratory 18 18 18 Rate Blood Pressure 147/92 182/118 H 09/23/18 09/23/18 08:02 09:39 Temperature 97.8 F Pulse Rate 59 L 76 Respiratory 18 Rate Blood Pressure 200/115 H 165/111 H NAD PLAN:CLONIDONE 0.1 STAT GIVE OTHER BP MEDS BEFORE DISCHARGE. PT WILL F/U WITH HER PMD ANTNOETTE [facility] OR DIANA GARCIA AT [facility]. PH:[phone]
[2018-09-23] MEDS: PRENATAL VITAMINS W/ FOLIC ACID TABLET (FP) PO SCH (09:16)
[2018-09-23] MEDS: FUROSEMIDE 40 MG TABLET (FP) PO SCH (09:16)
[2018-09-23] MEDS: PANTOPRAZOLE 40 MG TABLET (FP) PO SCH (09:16)
[2018-09-23] MEDS: NICOTINE 21 MG/24 HOURS TOPICAL PATCH TD SCH (09:16)
[2018-09-23] MEDS: DOCUSATE SODIUM 100 MG CAPSULE (FP) PO SCH (09:16)
[2018-09-23] MEDS: POLYETHYLENE GLYCOL 3350 119 GM BTL PO SCH (09:17)
--- NOTE | 2018-09-23 09:24 | PN ---
[facility] Progress Note Note: Patient has completed this program today. She is discharged and referred to [facility] for outpatient treatment. Scripts for 30 day supply of Paxil 20 mg po HS and Gabapentin 300 mg po HS electronically transmitted to [facility] at [address] [place] [id number]
[2018-09-23 09:39] VITALS: BP 165/111; PULSE 76
== END 2018-09-23 10:11 | disposition home or self-care (01) | DRG 895 ==
LOC: YASAS 14:54 → Y3E 14:56
PROVIDERS: ADMIT Psychiatry & Neurology Psychiatry; ATTEND Psychiatry & Neurology Psychiatry
PROC: HZ42ZZZ Group Counseling for Substance Abuse Treatment, Cognitive-Behavioral (ICD-10-PCS; principal; 2018-09-09)
DX: F11.20 Opioid dependence, uncomplicated (principal); F33.9 Major depressive disorder, recurrent, unspecified; F10.20 Alcohol dependence, uncomplicated; F17.210 Nicotine dependence, cigarettes, uncomplicated; F19.24 Other psychoactive substance dependence with psychoactive substance-induced mood disorder; G47.00 Insomnia, unspecified; I10 Essential (primary) hypertension; R60.0 Localized edema; K59.00 Constipation, unspecified; Z91.19 Patient's noncompliance with other medical treatment and regimen
CPT/HCPCS: J0735

== ENCOUNTER 2022-10-11 17:55 | Inpatient (IN) | payer OTHER ==
[2022-10-11 18:56] VITALS: BMI 23.9
[2022-10-11] MEDS ORDERED: ALBUTEROL SO4 HFA INHALER IH PRN (20:14)
[2022-10-11] MEDS ORDERED: NALOXONE HCL (KLOXXADO) 8 MG SPRAY NS PRN (20:15)
[2022-10-11] MEDS ORDERED: NALOXONE HCL 0.4 MG/ML VIAL IM PRN (20:15)
[2022-10-11] MEDS ORDERED: BISMUTH SUBSALICYLATE 524 MG/30 ML PO PRN (20:15)
[2022-10-11] MEDS ORDERED: guaiFENesin 200 MG/10 ML 10 ML UNIT-DOSE CUPS PO PRN (20:15)
[2022-10-11] MEDS ORDERED: MAGNESIUM HYDROX 2400MG/30ML ORAL SUSPENSION 30 ML CUP PO PRN (20:15)
[2022-10-11] MEDS ORDERED: BENZOCAINE/MENTHOL (CHLORASEPTIC ) LOZENGE MM PRN (20:15)
[2022-10-11] MEDS ORDERED: ACETAMINOPHEN 325 MG TABLET (FP) PO PRN ×2 (20:15)
[2022-10-11] MEDS ORDERED: P-EPHED 60MG/TRIPROLIDI 2.5MG TABLET PO PRN (20:15)
[2022-10-11] MEDS ORDERED: MAG HYDROX/AL HYDROX/SIMETH 30 ML UNIT-DOSE CUP PO PRN (20:15)
[2022-10-11] MEDS ORDERED: LOPERAMIDE HCL 2 MG CAPSULE PO PRN (20:15)
[2022-10-11] MEDS ORDERED: POLYETHYLENE GLYCOL (HEALTHYLAX) 3350 17 GM PACKET PO PRN (20:15)
[2022-10-11] MEDS ORDERED: ONDANSETRON *ODT* 4 MG TABLET SL PRN (20:15)
[2022-10-11] MEDS ORDERED: IBUPROFEN 400 MG TABLET (FP) PO PRN (20:15)
[2022-10-11] MEDS ORDERED: AMMONIUM LACTATE 12% LOTION 225 GM BOTTLE TP PRN (20:20)
[2022-10-11] MEDS ORDERED: methaDONE HCL 10 MG TABLET (FOR DETOX USE ONLY) PO ONE (20:22)
[2022-10-11] MEDS ORDERED: methaDONE HCL 10 MG TABLET (FOR DETOX USE ONLY) ONE (21:04)
[2022-10-11] MEDS: DICYCLOMINE HCL 10 MG CAPSULE PO PRN (22:22)
[2022-10-11] MEDS: diazePAM 5 MG TABLET PO SCH (22:23)
[2022-10-11] MEDS: hydrOXYzine PAMOATE 25 MG CAPSULE (FP) PO PRN (22:23)
[2022-10-11] MEDS: THIAMINE HCL 100 MG TABLET (FP) PO SCH (22:24)
[2022-10-11] MEDS: MELATONIN 5 MG TABLETS PO PRN (22:24)
[2022-10-11] MEDS: cloNIDine HCL 0.1 MG TABLET PO PRN (23:42)
[2022-10-11] MEDS: VITAMINS A AND D TOPICAL OINTMENT 60 GM TUBE TP SCH (23:55)
[2022-10-12] MEDS: diazePAM 5 MG TABLET PO SCH ×4 (06:24→22:20)
[2022-10-12] MEDS: VITAMINS A AND D TOPICAL OINTMENT 60 GM TUBE TP SCH ×3 (06:57→18:08)
[2022-10-12] MEDS: hydrOXYzine PAMOATE 25 MG CAPSULE (FP) PO PRN ×2 (08:02→17:51)
[2022-10-12] MEDS ORDERED: methaDONE HCL 10 MG TABLET (FOR DETOX USE ONLY) PO ONE (10:00)
[2022-10-12] MEDS ORDERED: LISINOPRIL 10 MG TABLET PO SCH (10:00)
[2022-10-12] MEDS: PRENATAL VITAMINS W/ FOLIC ACID TABLET (FP) PO SCH (10:12)
[2022-10-12] MEDS: amLODIPine BESYLATE 10 MG TABLET (FP) PO SCH (10:14)
[2022-10-12] MEDS: FUROSEMIDE 20 MG TABLET (FP) PO SCH (10:15)
[2022-10-12 17:39] LABS: HEMATOCRIT 40.3 % (32.4-45.2); HEMOGLOBIN 12.8 GM/dL (10.7-15.3); MCH 29.7 pg (25.7-33.7); MCHC 31.9 g/dl (32.0-36.0); MEAN PLT VOLUME 11.3 fl (7.5-11.1); PLATELET COUNT 120 10^3/uL (134-434); RBC 4.33 M/mm3 (3.60-5.2); RDW 15.7 % (11.6-15.6); WHITE BLOOD COUNT 9.3 K/mm3 (4.0-10.0)
[2022-10-12 17:49] LABS: CALCIUM 8.4 mg/dL (8.5-10.1)
[2022-10-12 17:50] LABS: ALBUMIN 3.6 g/dl (3.4-5.0); BLOOD UREA NITROGEN 25.2 mg/dL (7-18)
[2022-10-12 17:52] LABS: CREATININE 1.5 mg/dL (0.55-1.3)
[2022-10-12 17:54] LABS: TOT PROT 6.7 g/dl (6.4-8.2)
[2022-10-12 17:55] LABS: BILIRUBIN,TOTAL 0.6 mg/dL (0.2-1)
[2022-10-12] MEDS: IBUPROFEN 600 MG TABLET (FP) PO PRN (17:57)
[2022-10-12] MEDS ORDERED: METHOCARBAMOL 500 MG TABLET PO ONE (19:43)
[2022-10-12] MEDS: MELATONIN 5 MG TABLETS PO PRN (22:17)
[2022-10-12] MEDS: PARoxetine HCL 20 MG TABLET PO SCH (22:18)
[2022-10-12] MEDS: LISINOPRIL 20 MG TABLET PO SCH (22:18)
[2022-10-12] MEDS: THIAMINE HCL 100 MG TABLET (FP) PO SCH (22:18)
[2022-10-13] MEDS: VITAMINS A AND D TOPICAL OINTMENT 60 GM TUBE TP SCH ×4 (00:25→18:00)
[2022-10-13] MEDS: diazePAM 5 MG TABLET PO SCH ×3 (05:51→22:14)
[2022-10-13] MEDS: cloNIDine HCL 0.1 MG TABLET PO PRN ×2 (08:52→14:11)
[2022-10-13] MEDS: amLODIPine BESYLATE 10 MG TABLET (FP) PO SCH (09:08)
[2022-10-13] MEDS: LISINOPRIL 20 MG TABLET PO SCH ×2 (09:09→22:14)
[2022-10-13] MEDS: PRENATAL VITAMINS W/ FOLIC ACID TABLET (FP) PO SCH (09:11)
[2022-10-13] MEDS ORDERED: methaDONE HCL 10 MG TABLET (FOR DETOX USE ONLY) PO ONE (10:00)
[2022-10-13] MEDS ORDERED: METHOCARBAMOL 500 MG TABLET PO ONE ×2 (12:31→12:45)
[2022-10-13] MEDS ORDERED: BACLOFEN 10 MG TABLET (FP) PO ONE (13:05)
[2022-10-13] MEDS: NICOTINE POLACRILEX 2 MG GUM BUC PRN ×2 (13:22→17:28)
[2022-10-13] MEDS ORDERED: POTASSIUM CHLORIDE ORAL LIQUID 20 MEQ/15 ML PO ONE (14:54)
[2022-10-13] MEDS ORDERED: POTASSIUM CHLORIDE TABS 20 MEQ TABLET.ER (FP) PO ONE (15:50)
[2022-10-13] MEDS ORDERED: SODIUM CHLORIDE NASAL SPRAY 44 ML BOTTLE NS PRN (16:15)
[2022-10-13] MEDS: diazePAM 5 MG TABLET PO PRN (17:26)
[2022-10-13] MEDS ORDERED: POTASSIUM CHLORIDE ORAL LIQUID 20 MEQ/15 ML PO SCH (22:00)
[2022-10-13] MEDS ORDERED: MELATONIN 5 MG TABLETS PO PRN (22:00)
[2022-10-13] MEDS: THIAMINE HCL 100 MG TABLET (FP) PO SCH (22:12)
[2022-10-13] MEDS: PARoxetine HCL 20 MG TABLET PO SCH (22:12)
[2022-10-13] MEDS: CARVEDILOL 25 MG TABLET (FP) PO SCH (22:13)
[2022-10-13] MEDS: BACLOFEN 10 MG TABLET (FP) PO SCH (22:13)
[2022-10-13] MEDS: IBUPROFEN 600 MG TABLET (FP) PO PRN (23:12)
[2022-10-14] MEDS: diazePAM 5 MG TABLET PO SCH ×2 (05:41→17:10)
[2022-10-14] MEDS: VITAMINS A AND D TOPICAL OINTMENT 60 GM TUBE TP SCH ×5 (05:41→23:01)
[2022-10-14] MEDS: diazePAM 5 MG TABLET PO PRN ×2 (07:30→14:08)
[2022-10-14] MEDS ORDERED: LISINOPRIL 10 MG TABLET PO ONE ×2 (07:36)
[2022-10-14] MEDS: BACLOFEN 10 MG TABLET (FP) PO SCH ×2 (09:04→22:38)
[2022-10-14] MEDS: amLODIPine BESYLATE 10 MG TABLET (FP) PO SCH (09:04)
[2022-10-14] MEDS: ASPIRIN COATED 81 MG TABLET.EC PO SCH (09:04)
[2022-10-14] MEDS: CARVEDILOL 25 MG TABLET (FP) PO SCH ×2 (09:05→22:38)
[2022-10-14] MEDS: FUROSEMIDE 20 MG TABLET (FP) PO SCH (11:32)
[2022-10-14] MEDS: PRENATAL VITAMINS W/ FOLIC ACID TABLET (FP) PO SCH (11:32)
[2022-10-14] MEDS ORDERED: POTASSIUM CHLORIDE ORAL LIQUID 20 MEQ/15 ML PO ONE ×3 (11:48→17:00)
[2022-10-14] MEDS: LACTULOSE 20 GM/30 ML UDC (FOR ORAL USE ONLY) PO SCH ×2 (14:12→22:38)
[2022-10-14] MEDS ORDERED: LISINOPRIL 20 MG TABLET PO ONE (15:07)
[2022-10-14] MEDS ORDERED: cloNIDine HCL 0.1 MG TABLET PO ONE (15:08)
[2022-10-14] MEDS: DICYCLOMINE HCL 10 MG CAPSULE PO PRN (15:37)
[2022-10-14] MEDS: hydrOXYzine PAMOATE 25 MG CAPSULE (FP) PO PRN (16:56)
[2022-10-14 17:32] VITALS: RESP 18
[2022-10-14 18:21] VITALS: BP 205/115; PULSE 75; TEMP 97.3
[2022-10-14 21:50] LABS: METHADONE, UR NEGATIVE (NEGATIVE); URINE BARBITURATES NEGATIVE (NEGATIVE)
[2022-10-14 21:51] LABS: COCAINE, UR NEGATIVE (NEGATIVE); OPIATES, URI NEGATIVE (NEGATIVE); PHENCYCLIDINE,URINE NEGATIVE (NEGATIVE); URINE AMPHETAMINES NEGATIVE (NEGATIVE)
[2022-10-14 21:55] LABS: URINE BENZODIAZEPINES POSITIVE (NEGATIVE)
[2022-10-14] MEDS: PARoxetine HCL 20 MG TABLET PO SCH (22:38)
[2022-10-14] MEDS: THIAMINE HCL 100 MG TABLET (FP) PO SCH (22:39)
[2022-10-14] MEDS: LISINOPRIL 20 MG TABLET PO SCH (22:39)
[2022-10-15] MEDS: VITAMINS A AND D TOPICAL OINTMENT 60 GM TUBE TP SCH ×2 (05:26→11:03)
[2022-10-15] MEDS: LACTULOSE 20 GM/30 ML UDC (FOR ORAL USE ONLY) PO SCH ×2 (05:26→13:25)
[2022-10-15] MEDS ORDERED: diazePAM 5 MG TABLET PO ONE (06:00)
[2022-10-15] MEDS: ASPIRIN COATED 81 MG TABLET.EC PO SCH (10:58)
[2022-10-15] MEDS: CARVEDILOL 25 MG TABLET (FP) PO SCH (10:58)
[2022-10-15] MEDS: FUROSEMIDE 20 MG TABLET (FP) PO SCH (10:59)
[2022-10-15] MEDS: BACLOFEN 10 MG TABLET (FP) PO SCH (11:00)
[2022-10-15] MEDS: amLODIPine BESYLATE 10 MG TABLET (FP) PO SCH (11:01)
[2022-10-15] MEDS: LISINOPRIL 20 MG TABLET PO SCH (11:02)
[2022-10-15] MEDS: PRENATAL VITAMINS W/ FOLIC ACID TABLET (FP) PO SCH (11:02)
== END 2022-10-15 17:02 | disposition home or self-care (01) | DRG 897 ==
LOC: YASAS 17:55 → Y6N 20:15
PROVIDERS: ADMIT Allergy & Immunology; ATTEND Family Medicine
PROC: HZ2ZZZZ Detoxification Services for Substance Abuse Treatment (ICD-10-PCS; principal; 2022-10-11)
DX: F11.23 Opioid dependence with withdrawal (principal); F10.230 Alcohol dependence with withdrawal, uncomplicated; F17.210 Nicotine dependence, cigarettes, uncomplicated; F32.9 Major depressive disorder, single episode, unspecified; E87.6 Hypokalemia; R79.89 Other specified abnormal findings of blood chemistry; Z99.89 Dependence on other enabling machines and devices
CPT/HCPCS: 36415; 80053; 80307; 81025; 82140; 84132; 85027; 86780; 93005; 93010; C9803-CS; J0475; U0003; U0005

== ENCOUNTER 2022-10-14 19:03 | Emergency (ER) | payer OTHER ==
[2022-10-14 19:16] VITALS: BMI 23.9
[2022-10-14] MEDS ORDERED: SODIUM CHLORIDE 0.9% 500 ML INFUS.BAG IV ONE (20:15)
[2022-10-14] MEDS ORDERED: FAMOTIDINE 20 MG/50 ML IVPB 20 MG/50 ML MG IVPB ONE ×2 (20:15→21:07)
[2022-10-14] MEDS ORDERED: MAG HYDROX/AL HYDROX/SIMETH 30 ML UNIT-DOSE CUP PO ONE (20:17)
[2022-10-14] MEDS ORDERED: chlordiazePOXIDE HCL 25 MG CAPSULE PO ONE (20:22)
[2022-10-14] MEDS ORDERED: FOLIC ACID INJECTION - 1 MG, THIAMINE HCL 100 MG, MULTIVIT INJECTION ADULT 10 ML in SOD... IVPB ONE (20:25)
[2022-10-14] MEDS ORDERED: ONDANSETRON 4 MG/2 ML VIAL IVPUSH ONE (20:28)
[2022-10-14] MEDS ORDERED: cloNIDine HCL 0.1 MG TABLET PO ONE (20:31)
[2022-10-14] MEDS ORDERED: cloNIDine HCL 0.1 MG TABLET ONE (21:05)
[2022-10-14] MEDS ORDERED: chlordiazePOXIDE HCL 25 MG CAPSULE ONE (21:05)
[2022-10-14] MEDS ORDERED: MAG HYDROX/AL HYDROX/SIMETH 30 ML UNIT-DOSE CUP ONE (21:06)
[2022-10-14] MEDS ORDERED: ONDANSETRON 4 MG/2 ML VIAL ONE (21:06)
[2022-10-14] MEDS ORDERED: FAMOTIDINE 10 MG/ML VIAL IVPB ONE (21:07)
[2022-10-14 21:08] LABS: BASO % 0.8 % (0-2.0); HEMATOCRIT 50.1 % (32.4-45.2); HEMOGLOBIN 16.3 GM/dL (10.7-15.3); LYMPH % 38.1 % (8-40); MCH 29.5 pg (25.7-33.7); MCHC 32.6 g/dl (32.0-36.0); MEAN CELL VOLUME 90.5 fl (80-96); MEAN PLT VOLUME 10.5 fl (7.5-11.1); MONO % 4.1 % (3.8-10.2); PLATELET COUNT 174 10^3/uL (134-434); RBC 5.53 M/mm3 (3.60-5.2); RDW 15.2 % (11.6-15.6); WHITE BLOOD COUNT 10.4 K/mm3 (4.0-10.0)
[2022-10-14 21:14] LABS: VENOUS BASE EXCESS 3.8 mmol/L (-2-2); VENOUS O2 SATURATION 93.1 % (70-80); VENOUS PCO2 30.2 mmHg (38-52); VENOUS PH 7.54 (7.310-7.410)
[2022-10-14 21:35] LABS: BLOOD UREA NITROGEN 7.2 mg/dL (7-18)
[2022-10-14 21:38] LABS: CREATININE 0.7 mg/dL (0.55-1.3)
[2022-10-14 21:40] LABS: BILIRUBIN,TOTAL 0.9 mg/dL (0.2-1)
[2022-10-14 21:56] LABS: ALBUMIN 4.9 g/dl (3.4-5.0); CALCIUM 10.3 mg/dL (8.5-10.1)
[2022-10-15] MEDS ORDERED: ACETAMINOPHEN 1000 MG/100 ML BAG IVPB ONE (00:36)
[2022-10-15] MEDS ORDERED: SUCRALFATE 1 GM TABLET (FP) PO ONE (00:37)
[2022-10-15] MEDS ORDERED: ACETAMINOPHEN INJECTION 100 ML IVPB ONE (02:00)
[2022-10-15] MEDS ORDERED: SUCRALFATE 1 GM TABLET (FP) ONE (02:00)
[2022-10-15] MEDS ORDERED: VALSARTAN 80 MG TABLET PO ONE (03:18)
[2022-10-15] MEDS ORDERED: VALSARTAN 80 MG TABLET ONE (03:23)
[2022-10-15] MEDS ORDERED: NITROGLYCERIN SUBLINGUAL 1/150 0.4 MG TAB SL ONE (04:29)
[2022-10-15] MEDS ORDERED: NITROGLYCERIN SUBLINGUAL 1/150 0.4 MG TAB ONE (04:33)
[2022-10-15] MEDS ORDERED: diazePAM CARPU-JECT 10 MG/2 ML DISP.SYRIN IVPUSH ONE (08:01)
[2022-10-15] MEDS ORDERED: diazePAM CARPU-JECT 10 MG/2 ML DISP.SYRIN ONE (08:22)
[2022-10-15] MEDS ORDERED: KETOROLAC TROMETHAMINE 15 MG/ML VIAL IVPUSH ONE (10:37)
[2022-10-15] MEDS ORDERED: dilTIAZem HCL 30 MG TABLET PO ONE (10:43)
[2022-10-15] MEDS ORDERED: morphine CARPU-JECT 4 MG/1 ML DISP.SYRIN IVPUSH ONE (11:06)
[2022-10-15] MEDS ORDERED: KETOROLAC TROMETHAMINE 15 MG/ML VIAL ONE (11:37)
[2022-10-15] MEDS ORDERED: dilTIAZem HCL 30 MG TABLET ONE (11:37)
[2022-10-15] MEDS ORDERED: morphine SULFATE 4 MG/ML VIAL ONE (11:49)
[2022-10-15 12:36] VITALS: PULSE 65
[2022-10-15 15:59] VITALS: BP 161/118; RESP 20; TEMP 97.9
== END 2022-10-15 16:27 | disposition home or self-care (01) ==
LOC: JER 19:03
PROC: 3E0333Z Introduction of Anti-inflammatory into Peripheral Vein, Percutaneous Approach (ICD-10-PCS; principal; 2022-10-14)
PROC: 3E033NZ Introduction of Analgesics, Hypnotics, Sedatives into Peripheral Vein, Percutaneous Approach (ICD-10-PCS; 2022-10-14)
PROC: 3E033GC Introduction of Other Therapeutic Substance into Peripheral Vein, Percutaneous Approach (ICD-10-PCS; 2022-10-14)
PROC: 3E0333Z Introduction of Anti-inflammatory into Peripheral Vein, Percutaneous Approach (ICD-10-PCS; 2022-10-14)
PROC: 3E033NZ Introduction of Analgesics, Hypnotics, Sedatives into Peripheral Vein, Percutaneous Approach (ICD-10-PCS; 2022-10-14)
PROC: 3E033GC Introduction of Other Therapeutic Substance into Peripheral Vein, Percutaneous Approach (ICD-10-PCS; 2022-10-14)
DX: R10.11 Right upper quadrant pain (principal)
CPT/HCPCS: 36415; 71045-TC-FY; 71275-TC; 74174-TC; 74176-TC; 76705-TC; 80053; 82803; 83605; 83690; 84484; 85025; 93005; 93010; 99291; Q9967